=== PATIENT | female | born 1945 | race African-American/Black ===

== ENCOUNTER 2017-10-31 18:24 | Emergency (ER) | payer OTHER ==
[~2017-10-31] VITALS: Ht 167.6 cm; Wt 72.6 kg
[~2017-10-31 18:24] MED LIST: ATOR20TA50 PO; AZIT500T4 PO; CLON0.2T PO; HYDR-4298 PO; LEVO25TA6; LISI-287 PO; POTA-167 PO
[2017-11-01 00:08] VITALS: BP 187/110
[2017-11-01] MEDS ORDERED: methylPREDNISolone SOD SUCC 125 MG/2 ML VL IM ONE (02:15)
[2017-11-01] MEDS ORDERED: KETOROLAC TROMETH 60MG/2ML VIAL IM ONE (02:15)
== END 2017-11-01 03:21 | disposition home or self-care (01) ==
LOC: ER 18:24 → EDBD 18:24 → ER 11-01 03:21
DX: M79.661 Pain in right lower leg (principal); M54.31 Sciatica, right side; I10 Essential (primary) hypertension; I25.10 Atherosclerotic heart disease of native coronary artery without angina pectoris; I48.91 Unspecified atrial fibrillation; E78.5 Hyperlipidemia, unspecified; Z90.710 Acquired absence of both cervix and uterus
CPT/HCPCS: 72131; 96372; 99284; J1885; J2930

== ENCOUNTER 2018-09-03 16:59 | Emergency (ER) | payer OTHER ==
[~2018-09-03] VITALS: Ht 167.6 cm; Wt 76.7 kg
[~2018-09-03 16:59] MED LIST changes: +ASPI325T4 PO
[2018-09-03] MEDS ORDERED: ASPirin 81 mg TAB PO ONE (17:30)
[2018-09-03] MEDS ORDERED: cloNIDine HCL 0.1 MG TAB ONE (17:44)
[2018-09-03 17:47] LABS: Basophils # (auto) 0.1 uL; Basophils % (auto) 1.1 % (0.0-2.0); Eosinophils # (auto) 0.1 uL; Eosinophils % (auto) 0.8 % (0.0-7.0); Hematocrit 46.8 % (36.0-46.0); Hemoglobin 15.8 g/dL (12.2-16.2); Lymphocytes # (auto) 3.3 uL; Lymphocytes % (auto) 42.4 % (10.0-50.0); Mean Corpuscular Hemoglobin 31.1 pg (28.0-32.0); Mean Corpuscular Hgb Conc. 33.8 g/dL (32.0-36.0); Mean Corpuscular Volume 92.1 fL (80.0-100.0); Monocytes # (auto) 0.8 uL; Monocytes % (auto) 9.9 % (0.0-12.0); Neutrophils # (auto) 3.5 uL; Neutrophils % (auto) 45.8 % (37.0-80.0); Nucleated Red Blood Cells % 0.1 %; Platelet Count (auto) 234 10^3/uL (140-450); Red Blood Cells 5.08 10^6/uL (4.0-5.20); Red Cell Distribution Width 13.6 % (11.8-14.3); White Blood Cell 7.7 10^3/uL (4.4-10.8)
[2018-09-03] MEDS ORDERED: cloNIDine HCL 0.1 MG TAB PO ONE (18:00)
[2018-09-03 18:13] LABS: Albumin 4.1 g/dL (3.4-5.0); Calcium 10.4 mg/dL (8.5-10.1); Magnesium 2.2 mg/dL (1.6-2.6); Potassium 3.7 mmol/L (3.5-5.1)
[2018-09-03 18:18] LABS: BUN/Creatinine Ratio 12.8; Bilirubin, Total 0.9 mg/dL (0.2-1.0); Total Protein 8.8 g/dL (6.4-8.2)
[2018-09-03] MEDS ORDERED: LABETALOL HCL 5 MG/ML ML 20ML VIAL IV ONE (18:45)
[2018-09-03 19:15] VITALS: BP 149/99
== END 2018-09-03 19:27 | disposition home or self-care (01) ==
LOC: ER 17:00
DX: F41.9 Anxiety disorder, unspecified (principal); I10 Essential (primary) hypertension; I48.91 Unspecified atrial fibrillation; I25.10 Atherosclerotic heart disease of native coronary artery without angina pectoris; E78.5 Hyperlipidemia, unspecified; E07.9 Disorder of thyroid, unspecified; Z90.710 Acquired absence of both cervix and uterus
CPT/HCPCS: 36415; 71045; 80053; 83735; 84484; 85025; 93005; 94761; 96374

== ENCOUNTER 2019-02-20 09:09 | Emergency (ER) | payer OTHER ==
[~2019-02-20] VITALS: Ht 152.4 cm; Wt 76.7 kg
[2019-02-20 10:00] VITALS: BP 169/99
[2019-02-20] MEDS ORDERED: KETOROLAC TROMETH 60MG/2ML VIAL IM ONE (11:15)
== END 2019-02-20 12:03 | disposition home or self-care (01) ==
LOC: ER 09:11
DX: S56.911A Strain of unspecified muscles, fascia and tendons at forearm level, right arm, initial encounter (principal); I48.91 Unspecified atrial fibrillation; E78.5 Hyperlipidemia, unspecified; I10 Essential (primary) hypertension; Z86.39 Personal history of other endocrine, nutritional and metabolic disease; Z90.710 Acquired absence of both cervix and uterus; X50.0XXA Overexertion from strenuous movement or load, initial encounter; Y93.01 Activity, walking, marching and hiking; Y92.89 Other specified places as the place of occurrence of the external cause; Y99.8 Other external cause status
CPT/HCPCS: 73090; 96372; 99283; J1885

== ENCOUNTER 2019-02-20 17:44 | Emergency (ER) | payer OTHER ==
[~2019-02-20] VITALS: Ht 167.6 cm; Wt 74.8 kg
[2019-02-20 17:53] VITALS: BP 140/88
== END 2019-02-21 01:07 | disposition left against medical advice (07) ==
LOC: EDBD 17:44 → ER 17:49
DX: M79.601 Pain in right arm (principal); R07.9 Chest pain, unspecified; Z53.21 Procedure and treatment not carried out due to patient leaving prior to being seen by health care provider
CPT/HCPCS: 93005

== ENCOUNTER 2020-01-30 12:39 | Emergency (ER) | payer OTHER ==
[~2020-01-30] VITALS: Ht 167.6 cm; Wt 72.6 kg
[~2020-01-30 12:39] MED LIST changes: -AZIT500T4 PO; +AZIT500T66 PO
[2020-01-30] MEDS ORDERED: cloNIDine HCL 0.1 MG TAB PO ONE (13:00)
[2020-01-30] MEDS ORDERED: ONDANSETRON HCL 4 MG/2 ML VIAL IV ONE (13:00)
[2020-01-30 13:18] LABS: Basophils # (auto) 0.1 10 ^3/uL (0-0.2); Basophils % (auto) 0.6 % (0.0-2.0); Eosinophils # (auto) 0 10 ^3/uL (0-0.8); Eosinophils % (auto) 0.2 % (0.0-7.0); Hematocrit 45.8 % (36.0-46.0); Hemoglobin 15.2 g/dL (12.2-16.2); Lymphocytes # (auto) 2.2 10 ^3/uL (0.4-5.4); Lymphocytes % (auto) 24.2 % (10.0-50.0); Mean Corpuscular Hemoglobin 30.6 pg (28.0-32.0); Mean Corpuscular Hgb Conc. 33.3 g/dL (32.0-36.0); Mean Corpuscular Volume 91.9 fL (80.0-100.0); Monocytes # (auto) 0.4 10 ^3/uL (0-1.3); Monocytes % (auto) 4.1 % (0.0-12.0); Neutrophils # (auto) 6.4 10 ^3/uL (1.6-8.6); Neutrophils % (auto) 70.9 % (37.0-80.0); Nucleated Red Blood Cells % 0.1 %; Platelet Count (auto) 235 10^3/uL (140-450); Red Blood Cells 4.98 10^6/uL (4.0-5.20); Red Cell Distribution Width 13.7 % (11.8-14.3); White Blood Cell 9.1 10^3/uL (4.4-10.8)
[2020-01-30] MEDS ORDERED: ETOMIDATE (2MG/ML) 20ML VIAL IV ONE ×2 (13:30→13:35)
[2020-01-30] MEDS ORDERED: SUCCINYLCHOLINE CHLORIDE 20 MG/ML 10ML VIAL IV ONE ×2 (13:30→13:35)
[2020-01-30 13:35] LABS: Albumin 3.9 g/dL (3.4-5.0); Anion Gap 9 (5-15); Blood Urea Nitrogen 18 mg/dL (7-18); Calcium 10.7 mg/dL (8.5-10.1); Carbon Dioxide 28 mmol/L (21-32); Chloride 100 mmol/L (98-107); Glucose 122 mg/dL (74-106); Sodium 137 mmol/L (136-145)
[2020-01-30] MEDS ORDERED: MIDAZOLAM DRIP 50 mg/50mL 50 ML IV ONE (13:35)
[2020-01-30 13:41] LABS: Alanine Aminotransferase 29 U/L (13-56); Alkaline Phosphatase 61 U/L (45-117); Aspartate Aminotransferase 21 U/L (15-37); Bilirubin, Total 0.8 mg/dL (0.2-1.0); GFR African American 79 mL/min; GFR Non-African American 65 mL/min; Total Protein 8.6 g/dL (6.4-8.2)
[2020-01-30 13:42] LABS: Potassium 2.9 mmol/L (3.5-5.1)
[2020-01-30] MEDS ORDERED: PHENYTOIN IV DILANTIN 1,000 MG in SODIUM CHL 0.9% 250 ML IV ONE (13:45)
[2020-01-30] MEDS ORDERED: DexAMETHasone SOD PHOS 10MG/1ML VIAL INJ IV ONE (13:45)
[2020-01-30 13:58] LABS: INR 1.09 (0.9-1.15); Partial Thromboplastin Time 29.4 sec (23.64-32.05)
[2020-01-30] MEDS ORDERED: PROPOFOL 100 ML IV ONE (14:00)
[2020-01-30] MEDS ORDERED: MIDAZOLAM DRIP 50 mg/50mL 50 ML IV SCH (14:06)
[2020-01-30] MEDS ORDERED: PROPOFOL 100 ML IV SCH (14:06)
[2020-01-30] MEDS ORDERED: POTASSIUM CHL 20MEQ/100ML 100 ML IV ONE (14:15)
[2020-01-30] MEDS ORDERED: AMIODARONE HCL 150 MG in D5W 5% 100 ML IV ONE (14:15)
[2020-01-30] MEDS ORDERED: DexAMETHasone SOD PHOS 10MG/1ML VIAL INJ ONE (14:17)
[2020-01-30 14:25] VITALS: BP 110/74
[2020-01-30] MEDS ORDERED: AMIODARONE 450mg/250ml AE 250 ML IV SCH (20:13)
== END 2020-01-30 14:42 | disposition short-term general hospital (02) ==
LOC: EDBD 12:39 → ER 12:39
DX: I62.9 Nontraumatic intracranial hemorrhage, unspecified (principal); I16.9 Hypertensive crisis, unspecified; E87.6 Hypokalemia; I48.20 Chronic atrial fibrillation, unspecified; R41.0 Disorientation, unspecified; M19.90 Unspecified osteoarthritis, unspecified site; I25.10 Atherosclerotic heart disease of native coronary artery without angina pectoris; E78.5 Hyperlipidemia, unspecified; I10 Essential (primary) hypertension; E07.9 Disorder of thyroid, unspecified
CPT/HCPCS: 31500; 36415; 70450; 71045; 80053; 84484; 85025; 85610; 85730; 93005; 96365; 96375; 99291; J0282; J0330; J1100; J1165; J2250; J2405; J2704; J7050; J7060; 94002

== ENCOUNTER 2020-02-25 09:49 | Inpatient (IN) | payer OTHER ==
[~2020-02-25] VITALS: Ht 160 cm; Wt 75.3 kg
[2020-02-25 11:35] LABS: Albumin 2.8 g/dL (3.4-5.0); Calcium 9.7 mg/dL (8.5-10.1)
[2020-02-25 11:41] LABS: Bilirubin, Total 0.3 mg/dL (0.2-1.0); Total Protein 7.3 g/dL (6.4-8.2)
[2020-02-25] MEDS ORDERED: LABETALOL HCL 5 MG/ML 4ML SYRINGE IV ONE (12:00)
[2020-02-25] MEDS ORDERED: SODIUM CHLORIDE 0.9% 1,000 ML IV ONE (12:00)
[2020-02-25] MEDS ORDERED: hydrALAZINE HCL 20 MG/ML VL IV ONE (15:45)
[2020-02-25 16:03] LABS: Basophils # (auto) 0 10 ^3/uL (0-0.2); Basophils % (auto) 0.6 % (0.0-2.0); Eosinophils # (auto) 0.2 10 ^3/uL (0-0.8); Hematocrit 37.9 % (36.0-46.0); Hemoglobin 12.7 g/dL (12.2-16.2); Lymphocytes # (auto) 2.4 10 ^3/uL (0.4-5.4); Lymphocytes % (auto) 45.7 % (10.0-50.0); Mean Corpuscular Hemoglobin 31.1 pg (28.0-32.0); Mean Corpuscular Hgb Conc. 33.4 g/dL (32.0-36.0); Mean Corpuscular Volume 92.9 fL (80.0-100.0); Monocytes # (auto) 0.6 10 ^3/uL (0-1.3); Monocytes % (auto) 12.2 % (0.0-12.0); Neutrophils % (auto) 38.5 % (37.0-80.0); Nucleated Red Blood Cells % 0.2 %; Platelet Count (auto) 177 10^3/uL (140-450); Red Blood Cells 4.08 10^6/uL (4.0-5.20); Red Cell Distribution Width 14.5 % (11.8-14.3); White Blood Cell 5.2 10^3/uL (4.4-10.8)
[2020-02-25] MEDS ORDERED: NITROGLYCERIN 0.4 MG SL TAB SL PRN (17:45)
[2020-02-25] MEDS ORDERED: MORPHINE SULF INJ 2 MG/ML SYRINGE 1ML IV PRN (17:45)
[2020-02-25] MEDS ORDERED: LABETALOL HCL 5 MG/ML ML 20ML VIAL IV PRN (19:15)
[2020-02-25] MEDS ORDERED: ONDANSETRON HCL 4 MG/2 ML VIAL IV PRN (19:15)
[2020-02-25] MEDS ORDERED: LACTULOSE 20Gm/30ML SOLN PO PRN (19:15)
[2020-02-25] MEDS: cloNIDine HCL 0.1 MG TAB PO SCH (21:30)
[2020-02-25] MEDS: hydrALAZINE HCL 25 MG TAB PO SCH (21:30)
[2020-02-25] MEDS: ATORVASTATIN 20 MG TAB PO SCH (21:30)
[2020-02-25] MEDS ORDERED: LISINOPRIL 20 MG TAB PO SCH (22:00)
[2020-02-25] MEDS ORDERED: CARVEDILOL 3.125 MG TAB PO SCH (22:00)
[2020-02-26] MEDS: hydrALAZINE HCL 25 MG TAB PO SCH ×3 (06:30→22:30)
[2020-02-26] MEDS: cloNIDine HCL 0.1 MG TAB PO SCH (06:30)
[2020-02-26] MEDS: LEVOTHYROXINE SODIUM 50 MCG TAB PO SCH (06:54)
[2020-02-26 07:08] LABS: Albumin 2.6 g/dL (3.4-5.0); Calcium 9.3 mg/dL (8.5-10.1); Potassium 3.4 mmol/L (3.5-5.1)
[2020-02-26 07:12] LABS: BUN/Creatinine Ratio 10.1; Bilirubin, Total 0.3 mg/dL (0.2-1.0); Total Protein 6.3 g/dL (6.4-8.2)
[2020-02-26] MEDS ORDERED: ENOXAPARIN SOD 60 MG/0.6 ML SYRINGE SC ONE (08:30)
[2020-02-26] MEDS ORDERED: diphenhdrAMINE HCL 50 MG/1 ML VL IV ONE (08:45)
[2020-02-26] MEDS ORDERED: FAMOTIDINE (10MG/ML) 2ML VL IV ONE (08:45)
[2020-02-26] MEDS ORDERED: MAGNESIUM SULFATE 1GM/100ML 100 ML IV ONE (08:45)
[2020-02-26] MEDS ORDERED: methylPREDNISolone SOD SUCC 40 MG/ML VL IV ONE (08:45)
[2020-02-26] MEDS ORDERED: POTASSIUM CHL 20 Meq TABLET PO ONE (08:45)
[2020-02-26 09:14] LABS: INR 1.07 (0.9-1.15); Partial Thromboplastin Time 28.3 sec (23.64-32.05)
[2020-02-26 09:15] VITALS: BP 110/71
--- NOTE | 2020-02-26 09:15 | NUR ---
Admit to [facility] LU STEVENSONBenjamindmitted to [facility] via gurney on millwright, and portable 02. Patient transfered to bed, connected to unit monitoring and oxygen, and weighed by bedscale. Patient oriented to Romario paris RN, unit, room, bed, and unit policies regarding patient care and visiting hours. All questions and concerns addressed, patient verbalized understanding.
[2020-02-26 09:26] LABS: Cholesterol 221 mg/dL (< 200)
[2020-02-26 09:29] LABS: HDL Cholesterol 40 mg/dL (40-59); LDL Cholesterol 152 mg/dL (< 100); Triglycerides 110 mg/dL (< 150)
[2020-02-26] MEDS: LISINOPRIL 20 MG TAB PO SCH (09:38)
[2020-02-26] MEDS: METOPROLOL TARTRATE 25 MG TAB PO SCH ×2 (10:00→22:30)
[2020-02-26] MEDS: NITROGLYCERIN 0.2MG/HR TOPICAL PATCH TD SCH (10:00)
[2020-02-26 10:20] LABS: Free T4 (Free Thyroxine) 0.69 ng/dL (0.89-1.76)
[2020-02-26 10:21] LABS: Free T3 1.99 pg/mL (2.3-4.2)
[2020-02-26] MEDS ORDERED: LABE300T3 PO (10:38)
[2020-02-26] MEDS ORDERED: ATOR40TA52 PO (10:38)
[2020-02-26] MEDS ORDERED: FAMO-12 PO (10:38)
[2020-02-26] MEDS ORDERED: LEVO50TA7 PO (10:38)
[2020-02-26] MEDS ORDERED: DOCU100T15 PO (10:38)
[2020-02-26] MEDS ORDERED: PHE100C PO (10:38)
--- NOTE | 2020-02-26 10:41 | NUR ---
FAMILY SON UPDATED ON PATIENT STATUS. ALL QUESTIONS AND CONCERNS ADDRESSED AT THIS TIME
[2020-02-26 12:00] VITALS: BP 123/70
--- NOTE | 2020-02-26 12:31 | NUR ---
PARTIAL LINEN CHANGE PERFORMED AT THIS TIME
--- NOTE | 2020-02-26 15:08 | NUR ---
DR. WELLS PAGED AWAITING CALLBACK
[2020-02-26 15:45] VITALS: BP 124/75
--- NOTE | 2020-02-26 17:46 | NUR ---
REPORT GIVEN TO STEVEN VALDIVIA TO ASSUME CARE
--- NOTE | 2020-02-26 17:56 | NUR ---
PATIENT TRANSFERRED TO ROOM 247A VIA AERONAUTICAL DESIGN ENGINEER AND ACLS GUIDELINES. ALL BELONGINGS WITH PATIENT AT THIS TIME
--- NOTE | 2020-02-26 19:50 | NUR ---
Opening Shift Note Assumed care of patient, awake, AAOx4. No S/S of distress/SOB or pain. On room air and ambulatory. Bed in lowest locked position, side rails up x2, call light within reach. Instructed on POC and to call for assist PRN, will continue to monitor for changes Q1hr and PRN.
[2020-02-26 22:00] VITALS: BP 159/87
[2020-02-26] MEDS: ATORVASTATIN 20 MG TAB PO SCH (22:00)
[2020-02-27 05:27] VITALS: BP 167/95
[2020-02-27 06:34] LABS: Basophils # (auto) 0 10 ^3/uL (0-0.2); Basophils % (auto) 0.9 % (0.0-2.0); Eosinophils # (auto) 0.1 10 ^3/uL (0-0.8); Eosinophils % (auto) 2.3 % (0.0-7.0); Hematocrit 40.3 % (36.0-46.0); Hemoglobin 13.4 g/dL (12.2-16.2); Lymphocytes # (auto) 1.5 10 ^3/uL (0.4-5.4); Lymphocytes % (auto) 28.8 % (10.0-50.0); Mean Corpuscular Hgb Conc. 33.4 g/dL (32.0-36.0); Monocytes # (auto) 0.5 10 ^3/uL (0-1.3); Monocytes % (auto) 10.1 % (0.0-12.0); Neutrophils % (auto) 57.9 % (37.0-80.0); Nucleated Red Blood Cells % 0.1 %; Platelet Count (auto) 197 10^3/uL (140-450); Red Blood Cells 4.33 10^6/uL (4.0-5.20); Red Cell Distribution Width 14.5 % (11.8-14.3); White Blood Cell 5.2 10^3/uL (4.4-10.8)
[2020-02-27] MEDS: LEVOTHYROXINE SODIUM 50 MCG TAB PO SCH (06:36)
[2020-02-27] MEDS: hydrALAZINE HCL 25 MG TAB PO SCH ×3 (06:36→22:00)
[2020-02-27 07:12] LABS: Calcium 9.7 mg/dL (8.5-10.1); Potassium 3.3 mmol/L (3.5-5.1)
[2020-02-27 08:00] VITALS: BP 150/87
[2020-02-27] MEDS: LISINOPRIL 20 MG TAB PO SCH (08:14)
--- NOTE | 2020-02-27 09:00 | NUR ---
REFUSED BREAKFAST TRAY. SHE SAID IT WAS DISGUSTING. I CALLED AND FAXED REQUEST FOR SOMETHING ELSE FOR BREAKFAST.
[2020-02-27] MEDS: METOPROLOL TARTRATE 25 MG TAB PO SCH ×2 (09:03→21:42)
[2020-02-27] MEDS: NITROGLYCERIN 0.2MG/HR TOPICAL PATCH TD SCH (09:04)
[2020-02-27] MEDS ORDERED: POTASSIUM CHL 20 Meq TABLET PO ONE (11:00)
[2020-02-27] MEDS: ACETAMINOPHEN 500 MG TAB PO PRN (11:51)
[2020-02-27 12:00] VITALS: BP 152/90
--- NOTE | 2020-02-27 13:06 | NUR ---
REQUESTED TO HAVE NITRO PATCH REMOVED SHE SAID IT IS NOT WORKING AND SHE STILL HAS A HEADACHE. SHE REFUSED HER BREAKFAST AND LUNCH TRAY. SHE SAID THE FOOD WAS DISGUSTING. I LEFT A MESSAGE WITH DIETARY TO PLEASE CONTACT PATIENT ABOUT HER FOOD CHOICES. I OFFERED HER TRAMADOL FIR THE HEADACHE AND SHE DECLINED IT BECAUSE SHE SAID IT HAS SIDE EFFECTS. SHE ASKED TO SPEAK WITH THE CHARGE NURSE SOME ONE ABOVE ME. I INFORMED THAT I WOULD LET LARS CHARGE NURSE KNOW THAT SHE WISHES TO SPEAK TO HER.
[2020-02-27] MEDS: cloNIDine HCL 0.1 MG TAB PO SCH (16:01)
[2020-02-27 17:00] VITALS: BP 161/95
[2020-02-27] MEDS: traMADol HCL 50 MG TAB PO PRN (19:02)
--- NOTE | 2020-02-27 19:30 | NUR ---
Opening Shift Note Assumed care of patient, awake and alert. No S/S of distress/SOB. Instructed on POC and to call for assist PRN, will continue to monitor for changes Q1hr and PRN.
[2020-02-27] MEDS ORDERED: amLODIPine BESYLATE 5 MG TAB PO ONE (20:15)
[2020-02-27] MEDS ORDERED: LORazepam 2MG/ML-1ML VIAL IV PRN (21:00)
[2020-02-27 21:19] LABS: Folate (Folic Acid) 11.8 ng/mL (5.38-24)
[2020-02-27] MEDS: ATORVASTATIN 20 MG TAB PO SCH (21:41)
[2020-02-27 22:08] VITALS: BP 153/100
[2020-02-28 05:31] VITALS: BP 154/90
[2020-02-28] MEDS: hydrALAZINE HCL 25 MG TAB PO SCH ×3 (06:05→22:05)
[2020-02-28] MEDS: LEVOTHYROXINE SODIUM 50 MCG TAB PO SCH (06:06)
--- NOTE | 2020-02-28 06:09 | NUR ---
Patient reports SOB on exertion from going to the restroom. Patient states that when she returns to bed she feel SOB afterwards which resolves after a bit of time. This is new to her - per patient.
--- NOTE | 2020-02-28 07:30 | NUR ---
Opening Shift Note Received report on the patient. Awake lying in bed. Patient shows no signs of distress at this time. Discussed the plan of care with the patient. Bed in lowest position, side rails up x2, and the call light is within reach.
[2020-02-28 08:00] VITALS: BP 151/92
[2020-02-28] MEDS ORDERED: HCTZ 25 MG TAB PO ONE (09:30)
[2020-02-28] MEDS: HCTZ 25 MG TAB PO SCH (09:36)
[2020-02-28] MEDS: cloNIDine HCL 0.1 MG TAB PO SCH (09:37)
[2020-02-28] MEDS: METOPROLOL TARTRATE 25 MG TAB PO SCH ×2 (09:37→22:06)
[2020-02-28] MEDS: LISINOPRIL 20 MG TAB PO SCH (09:38)
[2020-02-28] MEDS: amLODIPine BESYLATE 5 MG TAB PO SCH (09:38)
--- NOTE | 2020-02-28 11:09 | NUR ---
Dr Spann at bedside. New orders received
[2020-02-28] MEDS ORDERED: POTASSIUM CHL 20 Meq TABLET PO ONE (11:15)
[2020-02-28 12:00] VITALS: BP 134/77
--- NOTE | 2020-02-28 12:04 | NUR ---
I faxed order for miguel to [facility]-requested a list of participating vendors and authorization.
--- NOTE | 2020-02-28 12:30 | NUR ---
PT REPORTS THAT SHE IS WALKING FINE AND DOES NOT NEED P.T.
--- NOTE | 2020-02-28 14:11 | NUR ---
I called [facility] [phone] and spoke with Olivia regarding patient's need for walker. Per Olivia she will fax me form that needs to be filled out and faxed back to them to start the authorization request. Faxed completed form to [phone]. Per Olivia they have a contract with [facility].
--- NOTE | 2020-02-28 14:15 | NUR ---
ELECTROENCEPHALOGRAM EEG COMPLETED AT BEDSIDE. PRIMARY RN TK LONGORIA.
--- NOTE | 2020-02-28 14:37 | NUR ---
assessment Patient is a 74 year old female who is alert and oriented. Prior to admission patient lived home with her son and functioned independently. Patient informed me she is able to care for her own ADLs. Per patient she will return home to her prior living arrangements post discharge and family will transport her home. Patient has no DME. Patient informed me she has had a stroke. Patient may benefit from a fww on discharge. Patient may also benefit from home health safety on discharge. I informed patient she has a right to speak to a web content & social media manager regarding all care. I informed patient she has a right to participate in any and all discharge planning. Patient does not have a POA and advanced directive. I have offered patient information on POA and advanced directives. I informed the patient the advantages and benefits of having an Advanced Directive. Patient verbalized understanding and agreed to discharge plan. Addendum: 02/28/20 at 1439 by Katie VAIL Amended: Links added.
--- NOTE | 2020-02-28 15:16 | NUR ---
Nutrition Assessment Notes please see attached link for complete assessment Est. Energy Needs ABW 65 [id number] kcal (23-25 kcal/kg BW), Est. Protein Needs: 65-71 gms/day (1.0-1.1 gms/kgABW)Will continue to monitor and reassess prn. Addendum: 02/28/20 at [address] Amended: Links added.
[2020-02-28 17:00] VITALS: BP 128/85
[2020-02-28] MEDS: ACETAMINOPHEN 500 MG TAB PO PRN (18:46)
--- NOTE | 2020-02-28 19:07 | NUR ---
Closing Shift Note Endorsed care to RN Mikal. Patient shows no signs of distress at this time.
--- NOTE | 2020-02-28 19:30 | NUR ---
Opening Shift Note Assumed care of patient, awake and alert. No S/S of distress/SOB or pain. Instructed on POC and to call for assist PRN, will continue to monitor for changes Q1hr and PRN.
[2020-02-28 22:00] VITALS: BP 159/98
[2020-02-28] MEDS: PHENYTOIN SODIUM 100 MG CAP PO SCH (22:06)
[2020-02-28] MEDS: ATORVASTATIN 20 MG TAB PO SCH (22:06)
[2020-02-29 05:00] VITALS: BP 136/88
[2020-02-29] MEDS: hydrALAZINE HCL 25 MG TAB PO SCH ×2 (06:11→14:00)
[2020-02-29] MEDS: LEVOTHYROXINE SODIUM 50 MCG TAB PO SCH (06:11)
[2020-02-29 08:41] VITALS: BP 139/85
[2020-02-29 09:49] LABS: Basophils # (auto) 0 10 ^3/uL (0-0.2); Basophils % (auto) 0.9 % (0.0-2.0); Eosinophils # (auto) 0.1 10 ^3/uL (0-0.8); Eosinophils % (auto) 2.2 % (0.0-7.0); Hematocrit 41.2 % (36.0-46.0); Hemoglobin 14.1 g/dL (12.2-16.2); Lymphocytes # (auto) 2.1 10 ^3/uL (0.4-5.4); Lymphocytes % (auto) 42.1 % (10.0-50.0); Mean Corpuscular Hemoglobin 31.5 pg (28.0-32.0); Mean Corpuscular Hgb Conc. 34.3 g/dL (32.0-36.0); Mean Corpuscular Volume 91.9 fL (80.0-100.0); Monocytes # (auto) 0.5 10 ^3/uL (0-1.3); Neutrophils # (auto) 2.2 10 ^3/uL (1.6-8.6); Neutrophils % (auto) 44.8 % (37.0-80.0); Nucleated Red Blood Cells % 0.1 %; Platelet Count (auto) 201 10^3/uL (140-450); Red Blood Cells 4.48 10^6/uL (4.0-5.20); Red Cell Distribution Width 14.9 % (11.8-14.3); White Blood Cell 4.9 10^3/uL (4.4-10.8)
[2020-02-29] MEDS: PHENYTOIN SODIUM 100 MG CAP PO SCH (09:51)
[2020-02-29 09:55] LABS: BUN/Creatinine Ratio 10.4; Calcium 9.8 mg/dL (8.5-10.1); Potassium 3.1 mmol/L (3.5-5.1)
[2020-02-29] MEDS: cloNIDine HCL 0.1 MG TAB PO SCH (10:00)
[2020-02-29] MEDS: METOPROLOL TARTRATE 25 MG TAB PO SCH (10:02)
[2020-02-29] MEDS: HCTZ 25 MG TAB PO SCH (10:02)
[2020-02-29] MEDS: amLODIPine BESYLATE 5 MG TAB PO SCH (10:03)
[2020-02-29] MEDS: LISINOPRIL 20 MG TAB PO SCH (10:03)
--- NOTE | 2020-02-29 10:50 | NUR ---
I received a call from Leatha at [facility] [phone] ext [phone] letting me know that she is working on the authorization for the walker from [facility]-she will call me back with authorization number.
--- NOTE | 2020-02-29 12:20 | NUR ---
I received a message from Leatha with [facility] letting me know that the authorization number for [facility] to provide walker is [id number].
[2020-02-29 13:00] VITALS: BP 149/101
[2020-02-29] MEDS ORDERED: LEV50T PO (13:20)
[2020-02-29] MEDS ORDERED: AML5T PO (13:20)
[2020-02-29] MEDS ORDERED: HCTZ25T PO (13:20)
[2020-02-29] MEDS ORDERED: MET25T PO (13:20)
[2020-02-29] MEDS ORDERED: LISI-646 PO (13:20)
[2020-02-29] MEDS ORDERED: CLO01T PO (13:20)
[2020-02-29] MEDS ORDERED: POTA-220 PO (13:22)
[2020-02-29] MEDS ORDERED: LEVO75TA6 PO (13:24)
[2020-02-29] MEDS ORDERED: POTASSIUM CHL 20 Meq TABLET PO ONE (13:30)
--- NOTE | 2020-02-29 14:49 | NUR ---
Patient down to MRI. No signs of distress at this time.
--- NOTE | 2020-02-29 15:17 | NUR ---
D/C Planning Per consult for walker. ANTOINE Hill obtain authorization from [facility] for walker. Faxed clinical information to [facility] [phone]. Per Crystal with [facility] clinical information has been received and they will be deliver to bed side.
[2020-02-29] MEDS: ACETAMINOPHEN 500 MG TAB PO PRN (15:29)
[2020-02-29 16:36] VITALS: BP 139/80
[2020-02-29 17:05] VITALS: BP 139/80
[2020-02-29] MEDS: traMADol HCL 50 MG TAB PO PRN (17:28)
--- NOTE | 2020-02-29 20:30 | NUR ---
Discharge instructions PREPARED BY DAY SHIFT RN. AND given as ordered. Encourage to follow up with PMD as instructed. All questions and concerns addressed. Patient verbalized understanding. Medication reconciliation form completed and copy given to patient. IV removed with catheter intact, pressure dressing applied. Telemetry unit returned to ICU. Patient taken to vehicle via wheelchair with all personal belongings, accompanied by staff . No distress noted at time of departure.
== END 2020-02-29 20:30 | disposition home or self-care (01) | DRG 64 ==
LOC: ER 09:49 → TELE 09:50 → DOU IN ICU 02-26 08:56 → TELE-EAST 02-26 17:52
PROVIDERS: ADMIT Internal Medicine; ATTEND Internal Medicine Nephrology
DX: I62.9 Nontraumatic intracranial hemorrhage, unspecified (principal); I21.4 Non-ST elevation (NSTEMI) myocardial infarction; I50.32 Chronic diastolic (congestive) heart failure; I16.0 Hypertensive urgency; E03.9 Hypothyroidism, unspecified; I48.91 Unspecified atrial fibrillation; I25.10 Atherosclerotic heart disease of native coronary artery without angina pectoris; E78.5 Hyperlipidemia, unspecified; I11.0 Hypertensive heart disease with heart failure; F17.200 Nicotine dependence, unspecified, uncomplicated; Z80.0 Family history of malignant neoplasm of digestive organs; Z82.49 Family history of ischemic heart disease and other diseases of the circulatory system; Z86.73 Personal history of transient ischemic attack (TIA), and cerebral infarction without residual deficits; Z90.710 Acquired absence of both cervix and uterus; Z98.61 Coronary angioplasty status; Z88.8 Allergy status to other drugs, medicaments and biological substances; M31.6 Other giant cell arteritis
CPT/HCPCS: 36415; 70450; 70551; 71046; 80048; 80053; 80061; 82550; 82607; 82746; 83735; 83880; 84439; 84443; 84481; 84484; 85025; 85610; 85652; 85730; 87081; 93005; 93306; 95819; G0378; J3490

== ENCOUNTER → 2020-05-10 | Emergency (ER) | payer OTHER ==
[~2020-05-10] VITALS: Ht 165.1 cm; Wt 65.8 kg
[~2020-05-10] MED LIST changes: +AML5T PO; -ASPI325T4 PO; -ATOR20TA50 PO; +ATOR40TA52 PO; -AZIT500T66 PO; +CLO01T PO; -CLON0.2T PO; +DOCU100T15 PO; +FAMO-12 PO; +HCTZ25T PO; -LISI-287 PO; +LISI-646 PO; +MET25T PO; +PHE100C PO; -POTA-167 PO; +POTA-220 PO; +SODIUM CHLORIDE 0.9% 1,000 ML IV ONE; +cloNIDine HCL 0.1 MG TAB PO ONE
[2020-05-10 15:51] LABS: Hematocrit 42.1 % (36.0-46.0); Hemoglobin 14.2 g/dL (12.2-16.2); Mean Corpuscular Hemoglobin 31.8 pg (28.0-32.0); Mean Corpuscular Hgb Conc. 33.6 g/dL (32.0-36.0); Mean Corpuscular Volume 94.5 fL (80.0-100.0); Platelet Count (auto) 213 10^3/uL (140-450); Red Blood Cells 4.45 10^6/uL (4.0-5.20); Red Cell Distribution Width 13.7 % (11.8-14.3); White Blood Cell 4.9 10^3/uL (4.4-10.8)
[2020-05-10 15:59] LABS: Band Neutrophils % (manual) 0; Basophils % (manual) 0 (0.0-2.0); Blast Cells 0; Eosinophils % (manual) 0 (0-7); Metamyelocytes % 0; Myelocytes % 0; Promyelocytes % 0; Reactive Lymphocytes 0
[2020-05-10 16:08] LABS: Albumin 3.7 g/dL (3.4-5.0); Anion Gap 3 (5-15); Blood Urea Nitrogen 7 mg/dL (7-18); Calcium 9.9 mg/dL (8.5-10.1); Carbon Dioxide 29 mmol/L (21-32); Chloride 106 mmol/L (98-107); Glucose 86 mg/dL (74-106); Potassium 3.5 mmol/L (3.5-5.1); Sodium 138 mmol/L (136-145)
[2020-05-10 16:09] LABS: Lymphocytes % (manual) 61 (10.0-50.0); Monocytes % (manual) 10 (0-12)
[2020-05-10 16:14] LABS: Alanine Aminotransferase 52 U/L (13-56); Alkaline Phosphatase 134 U/L (45-117); Aspartate Aminotransferase 34 U/L (15-37); BUN/Creatinine Ratio 7.7; Bilirubin, Total 0.3 mg/dL (0.2-1.0); GFR African American 78 mL/min; GFR Non-African American 64 mL/min; Total Protein 7.9 g/dL (6.4-8.2)
[2020-05-10 16:37] LABS: Urine Bacteria NONE SEEN /hpf (None Seen); Urine Blood Negative /uL (Negative); Urine Specific Gravity 1.007 (1.001-1.035); Urine WBC <1 /hpf (0 - 5)
[2020-05-10 19:55] VITALS: BP 132/85
== END | disposition home or self-care (01) ==
LOC: ER 14:36
DX: I10 Essential (primary) hypertension (principal); R53.1 Weakness; R42 Dizziness and giddiness; R51 Headache; Z88.8 Allergy status to other drugs, medicaments and biological substances; I48.91 Unspecified atrial fibrillation; M19.90 Unspecified osteoarthritis, unspecified site; I25.10 Atherosclerotic heart disease of native coronary artery without angina pectoris; E78.5 Hyperlipidemia, unspecified; E07.9 Disorder of thyroid, unspecified
CPT/HCPCS: 36415; 70450; 71045; 80053; 81001; 84484; 85007; 85027; 93005; 96360; 96361; 99285; J7030

== ENCOUNTER 2020-05-18 21:10 | Emergency (ER) | payer OTHER ==
[~2020-05-18] VITALS: Ht 167.6 cm; Wt 63.5 kg
[~2020-05-18 21:10] MED LIST changes: -SODIUM CHLORIDE 0.9% 1,000 ML IV ONE; -cloNIDine HCL 0.1 MG TAB PO ONE
[2020-05-18] MEDS ORDERED: cloNIDine HCL 0.1 MG TAB PO ONE (22:00)
[2020-05-18 22:16] LABS: Basophils # (auto) 0.1 10 ^3/uL (0-0.2); Eosinophils # (auto) 0.1 10 ^3/uL (0-0.8); Eosinophils % (auto) 1.2 % (0.0-7.0); Hematocrit 38.3 % (36.0-46.0); Hemoglobin 13.1 g/dL (12.2-16.2); Lymphocytes # (auto) 2.5 10 ^3/uL (0.4-5.4); Lymphocytes % (auto) 51.9 % (10.0-50.0); Mean Corpuscular Hemoglobin 31.9 pg (28.0-32.0); Mean Corpuscular Hgb Conc. 34.2 g/dL (32.0-36.0); Mean Corpuscular Volume 93.3 fL (80.0-100.0); Monocytes # (auto) 0.6 10 ^3/uL (0-1.3); Monocytes % (auto) 11.6 % (0.0-12.0); Neutrophils # (auto) 1.7 10 ^3/uL (1.6-8.6); Neutrophils % (auto) 34.3 % (37.0-80.0); Nucleated Red Blood Cells % 0.1 %; Platelet Count (auto) 206 10^3/uL (140-450); Red Cell Distribution Width 13.7 % (11.8-14.3); White Blood Cell 4.9 10^3/uL (4.4-10.8)
[2020-05-18 22:30] LABS: Albumin 3.3 g/dL (3.4-5.0); Anion Gap 3 (5-15); Blood Urea Nitrogen 7 mg/dL (7-18); Calcium 9.7 mg/dL (8.5-10.1); Carbon Dioxide 29 mmol/L (21-32); Chloride 103 mmol/L (98-107); Glucose 98 mg/dL (74-106); Potassium 3.3 mmol/L (3.5-5.1); Sodium 135 mmol/L (136-145)
[2020-05-18 22:33] LABS: Alanine Aminotransferase 50 U/L (13-56); Aspartate Aminotransferase 35 U/L (15-37); BUN/Creatinine Ratio 8.6; GFR African American 89 mL/min; GFR Non-African American 73 mL/min
[2020-05-18 22:37] LABS: Alkaline Phosphatase 109 U/L (45-117); Bilirubin, Total 0.2 mg/dL (0.2-1.0); Total Protein 7.2 g/dL (6.4-8.2)
[2020-05-18 22:44] LABS: INR 1.07 (0.9-1.15); Partial Thromboplastin Time 27.7 sec (23.0-31.2)
[2020-05-19] MEDS ORDERED: MORPHINE SULF INJ 2 MG/ML SYRINGE 1ML IM ONE (01:00)
[2020-05-19] MEDS ORDERED: ONDANSETRON HCL 4 MG/2 ML VIAL IV ONE (01:00)
[2020-05-19 01:47] LABS: Urine Bacteria NONE SEEN /hpf (None Seen); Urine Blood Negative /uL (Negative); Urine Specific Gravity 1.004 (1.001-1.035); Urine WBC 2 /hpf (0 - 5)
[2020-05-19 03:00] VITALS: BP 115/66
[2020-05-19] MEDS ORDERED: HYDROcodone-ACET 5/325MG TAB PO ONE (03:00)
== END 2020-05-19 03:00 | disposition home or self-care (01) ==
LOC: ER 21:10
DX: I10 Essential (primary) hypertension (principal); N39.0 Urinary tract infection, site not specified; E78.5 Hyperlipidemia, unspecified; Z90.710 Acquired absence of both cervix and uterus; Z79.899 Other long term (current) drug therapy; Z88.8 Allergy status to other drugs, medicaments and biological substances
CPT/HCPCS: 36415; 70450; 71045; 80053; 81001; 83880; 84484; 85025; 85610; 85730; 93005; 96372; 96374; 99285; J2270; J2405

== ENCOUNTER 2020-10-18 20:50 | Inpatient (IN) | payer OTHER ==
[~2020-10-18] VITALS: Ht 167.6 cm; Wt 73.9 kg
[~2020-10-18 20:50] MED LIST changes: -HCTZ25T PO; +HYDR25TA5 PO
[2020-10-18 21:37] LABS: Basophils # (auto) 0.1 10 ^3/uL (0-0.2); Basophils % (auto) 1.7 % (0.0-2.0); Eosinophils # (auto) 0.1 10 ^3/uL (0-0.8); Eosinophils % (auto) 1.4 % (0.0-7.0); Hematocrit 36.6 % (36.0-46.0); Hemoglobin 12.5 g/dL (12.2-16.2); Lymphocytes # (auto) 2.2 10 ^3/uL (0.4-5.4); Lymphocytes % (auto) 44.4 % (10.0-50.0); Mean Corpuscular Hemoglobin 32.1 pg (28.0-32.0); Mean Corpuscular Hgb Conc. 34.1 g/dL (32.0-36.0); Monocytes # (auto) 0.4 10 ^3/uL (0-1.3); Monocytes % (auto) 7.5 % (0.0-12.0); Neutrophils # (auto) 2.2 10 ^3/uL (1.6-8.6); Nucleated Red Blood Cells % 0.1 %; Platelet Count (auto) 213 10^3/uL (140-450); Red Blood Cells 3.89 10^6/uL (4.0-5.20); Red Cell Distribution Width 13.2 % (11.8-14.3); White Blood Cell 4.9 10^3/uL (4.4-10.8)
[2020-10-18 21:50] LABS: Albumin 3.4 g/dL (3.4-5.0); Anion Gap 4 (5-15); Blood Urea Nitrogen 16 mg/dL (7-18); Calcium 9.6 mg/dL (8.5-10.1); Carbon Dioxide 30 mmol/L (21-32); Chloride 107 mmol/L (98-107); Glucose 116 mg/dL (74-106); Magnesium 1.8 mg/dL (1.6-2.6); Potassium 3.2 mmol/L (3.5-5.1); Sodium 141 mmol/L (136-145)
[2020-10-18 21:56] LABS: INR 0.99 (0.9-1.15); Partial Thromboplastin Time 26.4 sec (23.0-31.2)
[2020-10-18 21:57] LABS: Alanine Aminotransferase 56 U/L (13-56); Alkaline Phosphatase 82 U/L (45-117); Aspartate Aminotransferase 44 U/L (15-37); BUN/Creatinine Ratio 15.7; Bilirubin, Total 0.5 mg/dL (0.2-1.0); GFR African American 68 mL/min; GFR Non-African American 56 mL/min; Total Protein 7.6 g/dL (6.4-8.2)
[2020-10-18] MEDS ORDERED: POTASSIUM CHL 20 Meq TABLET PO STA (22:46)
[2020-10-19] MEDS ORDERED: IOHEXOL 350 MG/ML 100ML IJ ONE (00:54)
[2020-10-19] MEDS ORDERED: ACETAMINOPHEN 325 MG TAB PO PRN (05:45)
[2020-10-19] MEDS ORDERED: HYDROcodone-ACET 5/325MG TAB PO PRN (05:45)
[2020-10-19] MEDS ORDERED: NITROGLYCERIN 0.4 MG SL TAB SL PRN (05:45)
[2020-10-19] MEDS ORDERED: ONDANSETRON HCL 4 MG/2 ML VIAL IV PRN (05:45)
[2020-10-19] MEDS ORDERED: hydrALAZINE HCL 20 MG/ML VL IV PRN (05:45)
[2020-10-19] MEDS ORDERED: MORPHINE SULF INJ 2 MG/ML SYRINGE 1ML IV PRN (05:45)
[2020-10-19] MEDS: SODIUM CHLOR 0.9% PF (SALINE LOCK) 10ML VIAL/SYR IV SCH ×3 (06:00→21:37)
[2020-10-19 06:47] LABS: Basophils # (auto) 0.1 10 ^3/uL (0-0.2); Basophils % (auto) 1.1 % (0.0-2.0); Eosinophils # (auto) 0.1 10 ^3/uL (0-0.8); Eosinophils % (auto) 1.4 % (0.0-7.0); Hematocrit 33.9 % (36.0-46.0); Hemoglobin 11.7 g/dL (12.2-16.2); Lymphocytes # (auto) 2.6 10 ^3/uL (0.4-5.4); Lymphocytes % (auto) 53.4 % (10.0-50.0); Mean Corpuscular Hemoglobin 32.6 pg (28.0-32.0); Mean Corpuscular Hgb Conc. 34.5 g/dL (32.0-36.0); Mean Corpuscular Volume 94.4 fL (80.0-100.0); Monocytes # (auto) 0.6 10 ^3/uL (0-1.3); Monocytes % (auto) 12.2 % (0.0-12.0); Neutrophils # (auto) 1.5 10 ^3/uL (1.6-8.6); Neutrophils % (auto) 31.9 % (37.0-80.0); Platelet Count (auto) 170 10^3/uL (140-450); Red Blood Cells 3.59 10^6/uL (4.0-5.20); Red Cell Distribution Width 13.2 % (11.8-14.3); White Blood Cell 4.8 10^3/uL (4.4-10.8)
[2020-10-19] MEDS: LEVOTHYROXINE SODIUM 88 MCG TAB PO SCH (07:00)
[2020-10-19 07:04] LABS: Calcium 9.4 mg/dL (8.5-10.1); Potassium 3.9 mmol/L (3.5-5.1)
[2020-10-19 07:09] LABS: BUN/Creatinine Ratio 17.2; Bilirubin, Total 0.6 mg/dL (0.2-1.0); Total Protein 6.6 g/dL (6.4-8.2)
[2020-10-19 07:47] LABS: Cholesterol 144 mg/dL (< 200)
[2020-10-19 07:50] LABS: HDL Cholesterol 63 mg/dL (40-59); LDL Cholesterol 78 mg/dL (< 100); Triglycerides 28 mg/dL (< 150)
[2020-10-19 09:56] VITALS: BP 146/84
[2020-10-19 10:00] VITALS: BP 146/84
[2020-10-19] MEDS: ASCORBIC ACID 500 MG TAB PO SCH ×2 (10:00→21:38)
[2020-10-19] MEDS ORDERED: LISINOPRIL 10 MG TAB PO SCH (10:00)
[2020-10-19] MEDS: amLODIPine BESYLATE 5 MG TAB PO SCH (10:45)
[2020-10-19] MEDS: MULTIPLE VITAMIN TAB PO SCH (10:45)
[2020-10-19] MEDS: FAMOTIDINE 20 MG TAB PO SCH ×2 (10:45→21:38)
[2020-10-19] MEDS: ASPirin 81 mg TAB PO SCH (10:45)
[2020-10-19] MEDS: ENOXAPARIN SOD 40 MG/0.4 ML SYRINGE SC SCH (10:46)
[2020-10-19] MEDS: DOCUSATE SOD 100 MG CAP PO PRN (10:55)
[2020-10-19 16:00] VITALS: BP 129/84
[2020-10-19] MEDS: Ensure HIGH Protein Chocolate 8oz Bottle PO SCH (18:11)
[2020-10-19] MEDS: METOPROLOL TARTRATE 25 MG TAB PO SCH (21:37)
[2020-10-19 22:00] VITALS: BP 138/84
[2020-10-19] MEDS ORDERED: ATORVASTATIN 20 MG TAB PO SCH (22:00)
[2020-10-19] MEDS ORDERED: PHENYTOIN SODIUM 100 MG CAP PO SCH (22:00)
[2020-10-19 22:09] LABS: Urine Bacteria MOD /hpf (None Seen); Urine Blood Negative /uL (Negative); Urine Hyaline Cast FEW /lpf (0 - 2); Urine WBC 4 /hpf (0 - 5)
[2020-10-20 05:00] VITALS: BP 154/95
[2020-10-20] MEDS: LEVOTHYROXINE SODIUM 88 MCG TAB PO SCH (06:09)
[2020-10-20] MEDS: SODIUM CHLOR 0.9% PF (SALINE LOCK) 10ML VIAL/SYR IV SCH ×2 (06:09→15:11)
[2020-10-20] MEDS: DOCUSATE SOD 100 MG CAP PO PRN (06:10)
[2020-10-20 07:09] LABS: Hematocrit 33.9 % (36.0-46.0); Hemoglobin 11.7 g/dL (12.2-16.2); Mean Corpuscular Hemoglobin 32.2 pg (28.0-32.0); Mean Corpuscular Hgb Conc. 34.4 g/dL (32.0-36.0); Mean Corpuscular Volume 93.5 fL (80.0-100.0); Platelet Count (auto) 171 10^3/uL (140-450); Red Blood Cells 3.62 10^6/uL (4.0-5.20); Red Cell Distribution Width 12.9 % (11.8-14.3)
[2020-10-20 07:13] LABS: Band Neutrophils % (manual) 0; Basophils % (manual) 0 (0.0-2.0); Blast Cells 0; Metamyelocytes % 0; Myelocytes % 0; Promyelocytes % 0; Reactive Lymphocytes 0
[2020-10-20 07:21] LABS: Albumin 2.9 g/dL (3.4-5.0); Potassium 3.3 mmol/L (3.5-5.1)
[2020-10-20 07:24] LABS: BUN/Creatinine Ratio 19.1; Bilirubin, Total 0.8 mg/dL (0.2-1.0); Total Protein 6.5 g/dL (6.4-8.2)
[2020-10-20 07:51] VITALS: BP 146/78
[2020-10-20 08:54] LABS: Eosinophils % (manual) 3 (0-7); Lymphocytes % (manual) 65 (10.0-50.0); Monocytes % (manual) 5 (0-12)
[2020-10-20] MEDS ORDERED: HCTZ 25 MG TAB PO SCH (10:00)
[2020-10-20] MEDS ORDERED: POTASSIUM CHL 20 Meq TABLET PO SCH (10:00)
[2020-10-20] MEDS ORDERED: LISINOPRIL 20 MG TAB PO SCH (10:00)
[2020-10-20] MEDS: Ensure HIGH Protein Chocolate 8oz Bottle PO SCH ×2 (10:03→12:50)
[2020-10-20] MEDS: ASPirin 81 mg TAB PO SCH (10:03)
[2020-10-20] MEDS: amLODIPine BESYLATE 5 MG TAB PO SCH (10:04)
[2020-10-20] MEDS: METOPROLOL TARTRATE 25 MG TAB PO SCH (10:04)
[2020-10-20] MEDS: MULTIPLE VITAMIN TAB PO SCH (10:04)
[2020-10-20] MEDS: ASCORBIC ACID 500 MG TAB PO SCH (10:05)
[2020-10-20] MEDS: ENOXAPARIN SOD 40 MG/0.4 ML SYRINGE SC SCH (10:05)
[2020-10-20] MEDS: FAMOTIDINE 20 MG TAB PO SCH (10:05)
[2020-10-20] MEDS ORDERED: POTASSIUM EFFERVESENT TAB 25 MEQ PO ONE (12:00)
[2020-10-20 12:34] VITALS: BP 132/72
== END 2020-10-20 15:05 | disposition home or self-care (01) | DRG 281 ==
LOC: ER 20:50 → EDUNIT# 20:50 → EDBD 20:50 → TELE 20:51 → TELE-EAST 10-19 08:05
PROVIDERS: ADMIT Nurse Practitioner Family; ATTEND Nurse Practitioner Family
DX: I48.91 Unspecified atrial fibrillation (principal); I21.A1 Myocardial infarction type 2; D68.59 Other primary thrombophilia; E44.0 Moderate protein-calorie malnutrition; I48.92 Unspecified atrial flutter; E78.5 Hyperlipidemia, unspecified; E87.6 Hypokalemia; E88.09 Other disorders of plasma-protein metabolism, not elsewhere classified; Z20.822 Contact with and (suspected) exposure to COVID-19; D64.9 Anemia, unspecified; I10 Essential (primary) hypertension; I25.10 Atherosclerotic heart disease of native coronary artery without angina pectoris; M19.90 Unspecified osteoarthritis, unspecified site; R00.1 Bradycardia, unspecified; E03.9 Hypothyroidism, unspecified; Z82.49 Family history of ischemic heart disease and other diseases of the circulatory system; Z68.24 Body mass index [BMI] 24.0-24.9, adult; Z88.8 Allergy status to other drugs, medicaments and biological substances; Z85.038 Personal history of other malignant neoplasm of large intestine; Z90.710 Acquired absence of both cervix and uterus; Z86.73 Personal history of transient ischemic attack (TIA), and cerebral infarction without residual deficits
CPT/HCPCS: 36415; 71045; 80053; 80061; 81001; 83735; 83880; 84443; 84484; 85007; 85025; 85027; 85379; 85610; 85730; 93005; G0378

== ENCOUNTER 2021-01-25 10:44 | Emergency (ER) | payer MEDICARE, BC, MEDICAID ==
[~2021-01-25] VITALS: Ht 167.6 cm; Wt 64.4 kg
[~2021-01-25 10:44] MED LIST changes: -LEVO25TA6; -LISI-646 PO; +LISI20TA28 PO; -PHE100C PO
[2021-01-25 11:16] LABS: Hematocrit 42.9 % (36.0-46.0); Hemoglobin 14.7 g/dL (12.2-16.2); Mean Corpuscular Hemoglobin 29.9 pg (28.0-32.0); Mean Corpuscular Hgb Conc. 34.1 g/dL (32.0-36.0); Mean Corpuscular Volume 87.7 fL (80.0-100.0); Platelet Count (auto) 215 10^3/uL (140-450); Red Blood Cells 4.89 10^6/uL (4.0-5.20); Red Cell Distribution Width 14.9 % (11.8-14.3); White Blood Cell 4.7 10^3/uL (4.4-10.8)
[2021-01-25 11:21] LABS: Basophils % (manual) 0 (0.0-2.0); Blast Cells 0; Metamyelocytes % 0; Myelocytes % 0; Promyelocytes % 0; Reactive Lymphocytes 0
[2021-01-25 11:28] LABS: Alanine Aminotransferase 29 U/L (13-56); Albumin 3.8 g/dL (3.4-5.0); Anion Gap 5 (5-15); Blood Urea Nitrogen 14 mg/dL (7-18); Calcium 10.3 mg/dL (8.5-10.1); Carbon Dioxide 30 mmol/L (21-32); Chloride 106 mmol/L (98-107); Glucose 73 mg/dL (74-106); Magnesium 1.9 mg/dL (1.6-2.6); Potassium 3.5 mmol/L (3.5-5.1); Sodium 141 mmol/L (136-145)
[2021-01-25 11:34] LABS: Alkaline Phosphatase 69 U/L (45-117); Aspartate Aminotransferase 23 U/L (15-37); BUN/Creatinine Ratio 16.1; Bilirubin, Total 0.7 mg/dL (0.2-1.0); GFR African American 82 mL/min; GFR Non-African American 68 mL/min; Total Protein 8.1 g/dL (6.4-8.2)
[2021-01-25 11:52] LABS: Band Neutrophils % (manual) 1; Eosinophils % (manual) 2 (0-7); Lymphocytes % (manual) 62 (10.0-50.0); Monocytes % (manual) 12 (0-12)
[2021-01-25] MEDS ORDERED: HYDROcodone-ACET 5/325MG TAB PO ONE (13:30)
[2021-01-25 14:00] VITALS: BP 151/89
[2021-01-25 14:17] LABS: Urine Bacteria FEW /hpf (None Seen); Urine Blood Negative /uL (Negative); Urine Specific Gravity 1.004 (1.001-1.035); Urine WBC 2 /hpf (0 - 5)
== END 2021-01-25 15:46 | disposition home or self-care (01) ==
LOC: ER 10:44
DX: N39.0 Urinary tract infection, site not specified (principal); R07.89 Other chest pain; I25.10 Atherosclerotic heart disease of native coronary artery without angina pectoris; E78.00 Pure hypercholesterolemia, unspecified; I10 Essential (primary) hypertension; I48.91 Unspecified atrial fibrillation; I25.2 Old myocardial infarction; E78.5 Hyperlipidemia, unspecified; Z88.8 Allergy status to other drugs, medicaments and biological substances; Z91.018 Allergy to other foods; Z79.899 Other long term (current) drug therapy; Z95.5 Presence of coronary angioplasty implant and graft; Z86.73 Personal history of transient ischemic attack (TIA), and cerebral infarction without residual deficits; Z98.890 Other specified postprocedural states; Z90.710 Acquired absence of both cervix and uterus
CPT/HCPCS: 36415; 71045; 80053; 81001; 83735; 84484; 85007; 85027; 93005

== ENCOUNTER 2021-02-05 21:47 | Emergency (ER) | payer MEDICARE, BC, MEDICAID ==
[~2021-02-05] VITALS: Ht 167.6 cm; Wt 65.8 kg
[2021-02-05 22:36] LABS: Basophils # (auto) 0 10 ^3/uL (0-0.2); Basophils % (auto) 0.8 % (0.0-2.0); Eosinophils # (auto) 0 10 ^3/uL (0-0.8); Eosinophils % (auto) 0.8 % (0.0-7.0); Hematocrit 40.6 % (36.0-46.0); Hemoglobin 13.9 g/dL (12.2-16.2); Lymphocytes % (auto) 53.2 % (10.0-50.0); Mean Corpuscular Hemoglobin 30.3 pg (28.0-32.0); Mean Corpuscular Hgb Conc. 34.3 g/dL (32.0-36.0); Mean Corpuscular Volume 88.3 fL (80.0-100.0); Monocytes # (auto) 0.6 10 ^3/uL (0-1.3); Monocytes % (auto) 10.7 % (0.0-12.0); Neutrophils # (auto) 1.9 10 ^3/uL (1.6-8.6); Neutrophils % (auto) 34.5 % (37.0-80.0); Nucleated Red Blood Cells % 0.1 %; Platelet Count (auto) 200 10^3/uL (140-450); Red Cell Distribution Width 15.6 % (11.8-14.3); White Blood Cell 5.6 10^3/uL (4.4-10.8)
[2021-02-05 22:53] LABS: Albumin 3.9 g/dL (3.4-5.0); Calcium 10.3 mg/dL (8.5-10.1); Chloride 105 mmol/L (98-107); Potassium 3.4 mmol/L (3.5-5.1); Sodium 138 mmol/L (136-145)
[2021-02-05 22:56] LABS: Alanine Aminotransferase 30 U/L (13-56); Anion Gap 5 (5-15); Aspartate Aminotransferase 27 U/L (15-37); BUN/Creatinine Ratio 16.3; Blood Urea Nitrogen 17 mg/dL (7-18); Carbon Dioxide 28 mmol/L (21-32); GFR African American 67 mL/min; GFR Non-African American 55 mL/min; Glucose 97 mg/dL (74-106)
[2021-02-05 23:00] LABS: Alkaline Phosphatase 63 U/L (45-117); Bilirubin, Total 0.6 mg/dL (0.2-1.0)
[2021-02-06 03:12] VITALS: BP 151/88
== END 2021-02-06 03:12 | disposition home or self-care (01) ==
LOC: ER 21:54
DX: M79.10 Myalgia, unspecified site (principal); E78.5 Hyperlipidemia, unspecified; I10 Essential (primary) hypertension; Z90.710 Acquired absence of both cervix and uterus; Z86.73 Personal history of transient ischemic attack (TIA), and cerebral infarction without residual deficits; Z88.6 Allergy status to analgesic agent
CPT/HCPCS: 36415; 80053; 84484; 85025; 93005

== ENCOUNTER → 2021-02-28 | Outpatient (CLI) | payer MEDICARE, BC, MEDICAID | END | disposition home or self-care (01) | LOC: Rad HDHVI 13:02 | PROVIDERS: ATTEND Internal Medicine Cardiovascular Disease | DX: R00.2 Palpitations (principal); I10 Essential (primary) hypertension | CPT/HCPCS: 93306 ==

== ENCOUNTER 2021-04-11 14:17 | Inpatient (IN) | payer MEDICARE, BC, OTHER ==
[~2021-04-11] VITALS: Ht 165.1 cm; Wt 79.0 kg
[2021-04-11] MEDS ORDERED: dilTIAZem 25 MG/5 ML VIAL IV ONE (14:30)
[2021-04-11 15:54] LABS: Basophils # (auto) 0.1 10 ^3/uL (0-0.2); Basophils % (auto) 0.9 % (0.0-2.0); Eosinophils # (auto) 0.1 10 ^3/uL (0-0.8); Eosinophils % (auto) 1.3 % (0.0-7.0); Hemoglobin 14.2 g/dL (12.2-16.2); Lymphocytes # (auto) 2.9 10 ^3/uL (0.4-5.4); Lymphocytes % (auto) 51.5 % (10.0-50.0); Mean Corpuscular Hemoglobin 31.4 pg (28.0-32.0); Mean Corpuscular Hgb Conc. 34.6 g/dL (32.0-36.0); Mean Corpuscular Volume 90.7 fL (80.0-100.0); Monocytes # (auto) 0.5 10 ^3/uL (0-1.3); Monocytes % (auto) 8.2 % (0.0-12.0); Neutrophils # (auto) 2.2 10 ^3/uL (1.6-8.6); Neutrophils % (auto) 38.1 % (37.0-80.0); Nucleated Red Blood Cells % 0.2 %; Red Blood Cells 4.52 10^6/uL (4.0-5.20); Red Cell Distribution Width 15.5 % (11.8-14.3); White Blood Cell 5.7 10^3/uL (4.4-10.8)
[2021-04-11 15:55] LABS: Albumin 3.2 g/dL (3.4-5.0); Anion Gap 7 (5-15); Blood Urea Nitrogen 27 mg/dL (7-18); Calcium 9.8 mg/dL (8.5-10.1); Carbon Dioxide 23 mmol/L (21-32); Chloride 112 mmol/L (98-107); Glucose 145 mg/dL (74-106); Magnesium 1.9 mg/dL (1.6-2.6); Potassium 3.3 mmol/L (3.5-5.1); Sodium 142 mmol/L (136-145)
[2021-04-11 16:03] LABS: Alanine Aminotransferase 20 U/L (13-56); Alkaline Phosphatase 55 U/L (45-117); Aspartate Aminotransferase 17 U/L (15-37); BUN/Creatinine Ratio 21.3; Bilirubin, Total 0.6 mg/dL (0.2-1.0); GFR African American 53 mL/min; GFR Non-African American 44 mL/min; Total Protein 7.2 g/dL (6.4-8.2)
[2021-04-11] MEDS ORDERED: NITROGLYCERIN 0.4 MG SL TAB SL PRN (16:15)
[2021-04-11] MEDS ORDERED: HYDROcodone-ACET 5/325MG TAB PO PRN (16:15)
[2021-04-11] MEDS ORDERED: ACETAMINOPHEN 325 MG TAB PO PRN (16:15)
[2021-04-11] MEDS ORDERED: MORPHINE SULF INJ 2 MG/ML SYRINGE 1ML IV PRN ×2 (16:15)
[2021-04-11] MEDS ORDERED: POTASSIUM CHL 20 Meq TABLET PO ONE (16:30)
[2021-04-11] MEDS ORDERED: SODIUM CHLORIDE 0.9% 1,000 ML IV ONE (16:30)
[2021-04-11] MEDS ORDERED: AMIODARONE 450mg/250ml AE 250 ML IV SCH ×2 (17:00→23:00)
[2021-04-11 18:46] LABS: Urine Bacteria NONE SEEN /hpf (None Seen); Urine Blood Negative /uL (Negative); Urine WBC 9 /hpf (0 - 5)
[2021-04-11] MEDS: METOPROLOL TARTRATE 25 MG TAB PO SCH (21:17)
[2021-04-11] MEDS: SACUBITRIL-VALSARTAN 24mg/26mg TAB PO SCH (21:17)
[2021-04-11 21:33] VITALS: BP 99/67
[2021-04-11] MEDS ORDERED: RIVA10TA PO (21:49)
[2021-04-11] MEDS ORDERED: AMLO-489 PO (21:49)
[2021-04-11] MEDS ORDERED: POTA-220 PO (21:49)
[2021-04-11] MEDS ORDERED: METO25TA93 PO (21:49)
[2021-04-11] MEDS ORDERED: SACU1TAB7 PO (21:49)
[2021-04-11] MEDS ORDERED: HYDR25TA4 PO (21:49)
[2021-04-11 22:00] VITALS: BP 99/67
[2021-04-11] MEDS: RIVAROXABAN 10 MG TAB PO SCH (22:00)
[2021-04-12] VITALS (7 sets, daily range): BP systolic 97–129; BP diastolic 64–87
[2021-04-12 05:44] LABS: Hematocrit 37.8 % (36.0-46.0); Hemoglobin 13.1 g/dL (12.2-16.2); Mean Corpuscular Hemoglobin 31.4 pg (28.0-32.0); Mean Corpuscular Hgb Conc. 34.7 g/dL (32.0-36.0); Mean Corpuscular Volume 90.6 fL (80.0-100.0); Red Blood Cells 4.17 10^6/uL (4.0-5.20); White Blood Cell 5.2 10^3/uL (4.4-10.8)
[2021-04-12 05:52] LABS: Potassium 3.1 mmol/L (3.5-5.1)
[2021-04-12 05:56] LABS: Band Neutrophils % (manual) 0; Basophils % (manual) 0 (0.0-2.0); Blast Cells 0; Metamyelocytes % 0; Myelocytes % 0; Promyelocytes % 0
[2021-04-12 06:01] LABS: Albumin 2.7 g/dL (3.4-5.0); BUN/Creatinine Ratio 21.7; Bilirubin, Total 0.7 mg/dL (0.2-1.0); Calcium 9.3 mg/dL (8.5-10.1); Total Protein 6.1 g/dL (6.4-8.2)
[2021-04-12 08:42] LABS: Eosinophils % (manual) 1 (0-7); Lymphocytes % (manual) 47 (10.0-50.0); Monocytes % (manual) 11 (0-12); Reactive Lymphocytes 4
[2021-04-12] MEDS: POTASSIUM CHL 20MEQ/100ML 100 ML IV SCH ×2 (09:39→10:30)
[2021-04-12] MEDS: SACUBITRIL-VALSARTAN 24mg/26mg TAB PO SCH ×2 (09:42→22:07)
[2021-04-12] MEDS: RIVAROXABAN 10 MG TAB PO SCH ×2 (09:57→22:09)
[2021-04-12] MEDS: METOPROLOL TARTRATE 25 MG TAB PO SCH ×2 (10:00→22:08)
[2021-04-12] MEDS ORDERED: ENOXAPARIN SOD 40 MG/0.4 ML SYRINGE SC SCH (10:00)
[2021-04-12] MEDS: amLODIPine BESYLATE 5 MG TAB PO SCH (10:00)
[2021-04-12] MEDS: AMIODARONE HCL 200 MG TAB PO SCH ×2 (14:00→22:07)
[2021-04-12] MEDS: POTASSIUM CHL 20 Meq TABLET PO SCH (22:08)
[2021-04-13 05:00] VITALS: BP 129/80
[2021-04-13] MEDS: AMIODARONE HCL 200 MG TAB PO SCH ×3 (06:01→22:39)
[2021-04-13 06:16] LABS: Albumin 2.7 g/dL (3.4-5.0); Calcium 9.2 mg/dL (8.5-10.1); Magnesium 1.6 mg/dL (1.6-2.6); Potassium 3.6 mmol/L (3.5-5.1)
[2021-04-13 06:19] LABS: BUN/Creatinine Ratio 18.8
[2021-04-13 06:22] LABS: Bilirubin, Total 0.8 mg/dL (0.2-1.0); Phosphorus 2.6 mg/dL (2.5-4.90); Total Protein 5.9 g/dL (6.4-8.2)
[2021-04-13 09:00] VITALS: BP 145/92
[2021-04-13] MEDS: POTASSIUM CHL 20 Meq TABLET PO SCH ×2 (09:48→22:39)
[2021-04-13] MEDS: SACUBITRIL-VALSARTAN 24mg/26mg TAB PO SCH ×2 (09:48→22:00)
[2021-04-13] MEDS: RIVAROXABAN 10 MG TAB PO SCH ×2 (09:58→22:39)
[2021-04-13] MEDS: amLODIPine BESYLATE 5 MG TAB PO SCH (10:11)
[2021-04-13] MEDS: METOPROLOL TARTRATE 25 MG TAB PO SCH ×2 (10:11→22:39)
[2021-04-13 17:00] VITALS: BP 109/78
[2021-04-13 20:00] VITALS: BP 109/76
[2021-04-13 22:00] VITALS: BP 109/76
[2021-04-14 05:00] VITALS: BP 107/77
[2021-04-14] MEDS: AMIODARONE HCL 200 MG TAB PO SCH ×3 (06:05→22:27)
[2021-04-14 06:25] LABS: BUN/Creatinine Ratio 16.7; Calcium 9.2 mg/dL (8.5-10.1)
[2021-04-14] MEDS ORDERED: LOPERAMIDE HCL 2 MG CAP PO PRN (06:45)
[2021-04-14 06:59] LABS: Potassium 3.6 mmol/L (3.5-5.1)
[2021-04-14 09:00] VITALS: BP 116/68
[2021-04-14] MEDS: METOPROLOL TARTRATE 25 MG TAB PO SCH ×2 (09:57→22:31)
[2021-04-14] MEDS: amLODIPine BESYLATE 5 MG TAB PO SCH (09:59)
[2021-04-14] MEDS: RIVAROXABAN 10 MG TAB PO SCH ×2 (09:59→22:28)
[2021-04-14] MEDS: SACUBITRIL-VALSARTAN 24mg/26mg TAB PO SCH ×2 (10:00→22:26)
[2021-04-14] MEDS: POTASSIUM CHL 20 Meq TABLET PO SCH ×2 (10:00→22:27)
[2021-04-14 13:00] VITALS: BP 114/75
[2021-04-14] MEDS ORDERED: traZODone HCL 50 MG TAB PO PRN (13:00)
[2021-04-14 17:00] VITALS: BP 104/81
[2021-04-14 20:00] VITALS: BP 114/75
[2021-04-14 22:00] VITALS: BP 118/92
[2021-04-15] VITALS (8 sets, daily range): BP systolic 92–118; BP diastolic 50–83
[2021-04-15] MEDS: AMIODARONE HCL 200 MG TAB PO SCH ×2 (07:00→15:00)
[2021-04-15] MEDS: POTASSIUM CHL 20 Meq TABLET PO SCH ×2 (10:41→22:00)
[2021-04-15] MEDS: METOPROLOL TARTRATE 25 MG TAB PO SCH (10:42)
[2021-04-15] MEDS: SACUBITRIL-VALSARTAN 24mg/26mg TAB PO SCH ×2 (10:43→22:00)
[2021-04-15] MEDS: RIVAROXABAN 10 MG TAB PO SCH ×2 (10:44→22:00)
[2021-04-15] MEDS: amLODIPine BESYLATE 5 MG TAB PO SCH (10:45)
[2021-04-15] MEDS ORDERED: fentaNYL CITRATE 100 MCG/2 ML VL IV ONE (12:45)
[2021-04-15] MEDS ORDERED: MIDAZOLAM HCL 2MG/2ML 2ml VIAL (1mg/ml) IV ONE ×4 (12:45→13:00)
[2021-04-15] MEDS ORDERED: diphenhdrAMINE HCL 50 MG/1 ML VL IV ONE (13:00)
[2021-04-15] MEDS ORDERED: FLUMAZENIL 0.1 MG/ML INJ 10ML MDV IV ONE (13:08)
[2021-04-16 05:00] VITALS: BP 108/62
[2021-04-16 05:19] LABS: Hematocrit 37.5 % (36.0-46.0); Mean Corpuscular Hemoglobin 31.6 pg (28.0-32.0); Mean Corpuscular Hgb Conc. 34.8 g/dL (32.0-36.0); Mean Corpuscular Volume 90.9 fL (80.0-100.0); Red Blood Cells 4.13 10^6/uL (4.0-5.20); Red Cell Distribution Width 15.2 % (11.8-14.3)
[2021-04-16 05:43] LABS: Albumin 2.5 g/dL (3.4-5.0); Calcium 8.9 mg/dL (8.5-10.1); Magnesium 1.7 mg/dL (1.6-2.6)
[2021-04-16 05:46] LABS: BUN/Creatinine Ratio 19.6; Bilirubin, Total 0.6 mg/dL (0.2-1.0); Total Protein 5.7 g/dL (6.4-8.2)
[2021-04-16 06:00] LABS: Band Neutrophils % (manual) 0; Basophils % (manual) 0 (0.0-2.0); Blast Cells 0; Metamyelocytes % 0; Myelocytes % 0; Promyelocytes % 0; Reactive Lymphocytes 0
[2021-04-16 07:38] LABS: Eosinophils % (manual) 4 (0-7); Lymphocytes % (manual) 45 (10.0-50.0); Monocytes % (manual) 4 (0-12)
[2021-04-16 09:00] VITALS: BP 111/70
[2021-04-16] MEDS: POTASSIUM CHL 20 Meq TABLET PO SCH (09:33)
[2021-04-16] MEDS: SACUBITRIL-VALSARTAN 24mg/26mg TAB PO SCH (09:34)
[2021-04-16] MEDS: amLODIPine BESYLATE 5 MG TAB PO SCH (09:34)
[2021-04-16] MEDS: RIVAROXABAN 10 MG TAB PO SCH (09:35)
[2021-04-16] MEDS: AMIODARONE HCL 200 MG TAB PO SCH (09:38)
[2021-04-16 13:07] VITALS: BP 122/74
[2021-04-16 17:38] VITALS: BP 114/71
== END 2021-04-16 19:03 | disposition home or self-care (01) | DRG 309 ==
LOC: ER 14:17 → TELE 16:13 → TELE-WESTW 20:04
PROVIDERS: ADMIT Nurse Practitioner; ATTEND Nurse Practitioner
PROC: 5A2204Z Restoration of Cardiac Rhythm, Single (ICD-10-PCS; principal; 2021-04-15)
DX: I48.91 Unspecified atrial fibrillation (principal); N17.9 Acute kidney failure, unspecified; D68.59 Other primary thrombophilia; E87.6 Hypokalemia; I10 Essential (primary) hypertension; E89.0 Postprocedural hypothyroidism; Z20.822 Contact with and (suspected) exposure to COVID-19; I25.10 Atherosclerotic heart disease of native coronary artery without angina pectoris; F41.9 Anxiety disorder, unspecified; Z82.49 Family history of ischemic heart disease and other diseases of the circulatory system; Z85.038 Personal history of other malignant neoplasm of large intestine; Z86.73 Personal history of transient ischemic attack (TIA), and cerebral infarction without residual deficits; Z90.710 Acquired absence of both cervix and uterus; Z88.8 Allergy status to other drugs, medicaments and biological substances
CPT/HCPCS: 36415; 71045; 80048; 80053; 80061; 81001; 83735; 83880; 84100; 84132; 84484; 85007; 85025; 85027; 85379; 87426; 93005; 96361; 96365; 96366; 96375; 99152; 99291; G0378; J2250; J3480

== ENCOUNTER → 2022-01-02 | Outpatient (CLI) | payer MEDICARE, BC, OTHER ==
[~2022-01-02] MED LIST changes: +AMLO-489 PO; -ATOR40TA52 PO; -DOCU100T15 PO; -FAMO-12 PO; +HYDR25TA4 PO; +METO25TA93 PO; +RIVA10TA PO; +SACU1TAB7 PO
[2022-01-02 15:46] LABS: Potassium 3.3 mmol/L (3.5-5.1)
[2022-01-02 15:52] LABS: BUN/Creatinine Ratio 19.4; Calcium 10.7 mg/dL (8.5-10.1)
== END | disposition home or self-care (01) ==
LOC: LAB 12:57
PROVIDERS: ATTEND Internal Medicine Cardiovascular Disease
DX: I10 Essential (primary) hypertension (principal); E21.4 Other specified disorders of parathyroid gland
CPT/HCPCS: 36415; 80048; 82330; 83970

== ENCOUNTER → 2022-01-07 | Outpatient (CLI) | payer MEDICARE, BC, OTHER | END | disposition home or self-care (01) | LOC: LAB 14:06 | PROVIDERS: ATTEND Internal Medicine Cardiovascular Disease | DX: E83.50 Unspecified disorder of calcium metabolism (principal) | CPT/HCPCS: 82330 ==

== ENCOUNTER 2022-04-24 13:43 | Emergency (ER) | payer MEDICARE, BC, OTHER ==
[~2022-04-24] VITALS: Ht 160 cm; Wt 66.0 kg
[2022-04-24] MEDS ORDERED: ACETAMINOPHEN 500 MG TAB PO ONE (16:00)
[2022-04-24 16:35] VITALS: BP 138/86
[2022-04-24] MEDS ORDERED: ACET-1080 PO (16:41)
[2022-04-24] MEDS ORDERED: PRED20TA2 PO (16:41)
== END 2022-04-24 17:00 | disposition home or self-care (01) ==
LOC: ER 13:43
DX: M51.17 Intervertebral disc disorders with radiculopathy, lumbosacral region (principal); E78.5 Hyperlipidemia, unspecified; I10 Essential (primary) hypertension; Z87.820 Personal history of traumatic brain injury; Z90.710 Acquired absence of both cervix and uterus; X50.1XXA Overexertion from prolonged static or awkward postures, initial encounter; Y93.89 Activity, other specified; Y92.89 Other specified places as the place of occurrence of the external cause; Y99.8 Other external cause status
CPT/HCPCS: 72100

== ENCOUNTER 2022-07-06 14:50 | Emergency (ER) | payer MEDICARE, BC ==
[~2022-07-06] VITALS: Ht 162.6 cm; Wt 68.4 kg
[~2022-07-06 14:50] MED LIST changes: +ACET-1080 PO; +PRED20TA2 PO
[2022-07-06] MEDS ORDERED: ASPirin-EC 325mg tab PO ONE (15:15)
[2022-07-06 15:57] LABS: Albumin 4.3 g/dL (3.4-5.0); Calcium 9.9 mg/dL (8.5-10.1); Potassium 3.2 mmol/L (3.5-5.1)
[2022-07-06 15:59] LABS: BUN/Creatinine Ratio 15.2
[2022-07-06 16:08] LABS: INR 1.1 (0.9-1.15)
[2022-07-06 16:09] LABS: Partial Thromboplastin Time 31.4 sec (24.6-33.4)
[2022-07-06 16:16] LABS: Bilirubin, Total 0.8 mg/dL (0.2-1.0); Total Protein 8.2 g/dL (6.4-8.2)
[2022-07-06 17:06] LABS: Basophils # (auto) 0 10 ^3/uL (0-0.2); Eosinophils # (auto) 0.1 10 ^3/uL (0-0.8); Eosinophils % (auto) 1.3 % (0.0-7.0); Hematocrit 44.2 % (36.0-46.0); Hemoglobin 14.7 g/dL (12.2-16.2); Lymphocytes # (auto) 1.9 10 ^3/uL (0.4-5.4); Lymphocytes % (auto) 47.7 % (10.0-50.0); Mean Corpuscular Hgb Conc. 33.2 g/dL (32.0-36.0); Mean Corpuscular Volume 93.5 fL (80.0-100.0); Monocytes # (auto) 0.4 10 ^3/uL (0-1.3); Monocytes % (auto) 10.4 % (0.0-12.0); Neutrophils # (auto) 1.6 10 ^3/uL (1.6-8.6); Neutrophils % (auto) 39.6 % (37.0-80.0); Nucleated Red Blood Cells % 0.4 %; Red Blood Cells 4.72 10^6/uL (4.0-5.20); Red Cell Distribution Width 13.4 % (11.8-14.3); White Blood Cell 3.9 10^3/uL (4.4-10.8)
[2022-07-06 18:10] VITALS: BP 140/88
== END 2022-07-06 17:31 | disposition home or self-care (01) ==
LOC: ER 14:50
DX: R07.89 Other chest pain (principal); I48.91 Unspecified atrial fibrillation; I10 Essential (primary) hypertension; I25.10 Atherosclerotic heart disease of native coronary artery without angina pectoris; E03.9 Hypothyroidism, unspecified; E78.5 Hyperlipidemia, unspecified; Z86.73 Personal history of transient ischemic attack (TIA), and cerebral infarction without residual deficits; Z90.710 Acquired absence of both cervix and uterus; Z90.89 Acquired absence of other organs; Z79.899 Other long term (current) drug therapy; Z91.041 Radiographic dye allergy status
CPT/HCPCS: 36415; 71046; 80053; 83735; 83880; 84484; 85025; 85610; 85730; 93005

== ENCOUNTER → 2022-09-09 | Outpatient (CLI) | payer MEDICARE, MEDICAID | END | disposition home or self-care (01) | LOC: Rad HDHVI 14:03 | PROVIDERS: ATTEND Internal Medicine Cardiovascular Disease | DX: I08.8 Other rheumatic multiple valve diseases (principal); R00.2 Palpitations; R00.1 Bradycardia, unspecified | CPT/HCPCS: 93306 ==

== ENCOUNTER → 2022-09-21 | Outpatient (CLI) | payer MEDICARE, MEDICAID | END | disposition home or self-care (01) | LOC: Rad HDHVI 13:58 | PROVIDERS: ATTEND Internal Medicine Cardiovascular Disease | DX: R00.1 Bradycardia, unspecified (principal); I25.2 Old myocardial infarction; I48.0 Paroxysmal atrial fibrillation; I10 Essential (primary) hypertension; E78.00 Pure hypercholesterolemia, unspecified | CPT/HCPCS: 78452; 93017; 96374; A9500 ==

== ENCOUNTER → 2023-04-14 | Outpatient (CLI) | payer MEDICARE, BC ==
[~2023-04-14] MED LIST changes: -AMLO-489 PO; +AMLO1TAB22 PO; +GABA-339 PO; -LISI20TA28 PO; +LISI20TA56 PO
[2023-04-14 10:10] VITALS: BP 138/86; PULSE 62; RESP 16; O2SAT 99
[2023-04-14 10:48] VITALS: BP 145/62; PULSE 62; RESP 16; O2SAT 99
== END | disposition home or self-care (01) ==
LOC: Rad HDHVI 10:02
PROVIDERS: ATTEND Internal Medicine Cardiovascular Disease
DX: Z01.818 Encounter for other preprocedural examination (principal); I11.9 Hypertensive heart disease without heart failure; R94.31 Abnormal electrocardiogram [ECG] [EKG]; R07.89 Other chest pain; R00.1 Bradycardia, unspecified; I48.0 Paroxysmal atrial fibrillation
CPT/HCPCS: 71046; 93005; G0463

== ENCOUNTER 2023-04-15 08:45 | Inpatient (IN) | payer MEDICARE, BC, OTHER ==
[2023-04-14 12:20] LABS: Basophils # (auto) 0.1 10 ^3/uL (0-0.2); Basophils % (auto) 1.5 % (0.0-2.0); Eosinophils # (auto) 0.1 10 ^3/uL (0-0.8); Eosinophils % (auto) 1.7 % (0.0-7.0); Hematocrit 42.8 % (36.0-46.0); Hemoglobin 14.3 g/dL (12.2-16.2); Lymphocytes # (auto) 2.1 10 ^3/uL (0.4-5.4); Lymphocytes % (auto) 53.3 % (10.0-50.0); Mean Corpuscular Hemoglobin 31.5 pg (28.0-32.0); Mean Corpuscular Hgb Conc. 33.3 g/dL (32.0-36.0); Mean Corpuscular Volume 94.6 fL (80.0-100.0); Monocytes # (auto) 0.4 10 ^3/uL (0-1.3); Monocytes % (auto) 9.3 % (0.0-12.0); Neutrophils # (auto) 1.3 10 ^3/uL (1.6-8.6); Neutrophils % (auto) 34.2 % (37.0-80.0); Nucleated Red Blood Cells % 0.5 %; Red Blood Cells 4.53 10^6/uL (4.0-5.20); Red Cell Distribution Width 13.5 % (11.8-14.3); White Blood Cell 3.8 10^3/uL (4.4-10.8)
[2023-04-14 12:29] LABS: BUN/Creatinine Ratio 16.3 (10.0-20.0); Calcium 10.1 mg/dL (8.5-10.1)
[2023-04-14 12:55] LABS: INR 1.04 (0.9-1.15); Partial Thromboplastin Time 27.1 SEC (24.5-34.5); Prothrombin Time 10.9 sec (9.3-11.8)
[2023-04-15] VITALS (9 sets, daily range): BP systolic 119–154; BP diastolic 74–91; PULSE 60–65; RESP 12–26; TEMP 97.5–97.6; O2SAT 96–100
[~2023-04-15] VITALS: Ht 160 cm; Wt 77.8 kg
[~2023-04-15 08:45] MED LIST changes: -AML5T PO; -CLO01T PO; -HYDR-4298 PO; -HYDR25TA4 PO; -HYDR25TA5 PO; -LISI20TA56 PO; -MET25T PO; -METO25TA93 PO; -PRED20TA2 PO
[2023-04-15] MEDS ORDERED: VANCOMYCIN 1GM/250ML 250 ML IV ONE (09:30)
[2023-04-15] MEDS ORDERED: VANCOMYCIN HCL 1000 MG VL ONE (15:28)
[2023-04-15] MEDS ORDERED: fentaNYL CITRATE 100 MCG/2 ML VL ONE (15:28)
[2023-04-15] MEDS ORDERED: MIDAZOLAM HCL 2MG/2ML 2ml VIAL (1mg/ml) ONE (15:29)
[2023-04-15] MEDS ORDERED: LIDOCAINE 2%HCL (LOCAL ANESTH.) INJ 20ML MDV ONE (15:29)
[2023-04-15] MEDS ORDERED: diphenhdrAMINE HCL 50 MG/1 ML VL ONE (16:01)
[2023-04-15] MEDS: ceFAZolin 1GM/50ML 50 ML IV SCH (18:53)
[2023-04-15] MEDS ORDERED: ACETAMINOPHEN 325 MG TAB PO PRN (19:00)
[2023-04-15] MEDS: GABAPENTIN 300 MG CAP PO SCH (21:33)
[2023-04-15] MEDS: SACUBITRIL-VALSARTAN 24mg/26mg TAB PO SCH (21:34)
[2023-04-16] MEDS: ceFAZolin 1GM/50ML 50 ML IV SCH (01:24)
[2023-04-16] MEDS ORDERED: VANCOMYCIN 1GM/250ML 250 ML IV SCH (02:40)
[2023-04-16 05:00] VITALS: BP 136/77; PULSE 60; RESP 16; TEMP 98.1; O2SAT 96
[2023-04-16] MEDS: GABAPENTIN 300 MG CAP PO SCH ×2 (05:16→14:28)
[2023-04-16 08:00] VITALS: BP 125/77; PULSE 60; RESP 18; TEMP 98.1; O2SAT 99
[2023-04-16 08:10] VITALS: PULSE 60
[2023-04-16] MEDS: SACUBITRIL-VALSARTAN 24mg/26mg TAB PO SCH (09:16)
[2023-04-16] MEDS ORDERED: POTASSIUM CHL 20 Meq TABLET PO SCH (10:00)
[2023-04-16] MEDS ORDERED: amLODIPine BESYLATE 5 MG TAB PO SCH (10:00)
[2023-04-16 12:00] VITALS: BP 110/74; PULSE 60; RESP 16; TEMP 97.8; O2SAT 99
[2023-04-16 16:00] VITALS: BP 127/79; PULSE 61; RESP 16; TEMP 97.8; O2SAT 98
== END 2023-04-16 18:40 | disposition home or self-care (01) | DRG 244 ==
LOC: CATH 08:45 → TELE 17:25 → TELE-CENTR 18:53
PROVIDERS: ADMIT Internal Medicine Cardiovascular Disease; ATTEND Internal Medicine Cardiovascular Disease
PROC: 0JH606Z Insertion of Pacemaker, Dual Chamber into Chest Subcutaneous Tissue and Fascia, Open Approach (ICD-10-PCS; principal; 2023-04-15)
PROC: 02H63JZ Insertion of Pacemaker Lead into Right Atrium, Percutaneous Approach (ICD-10-PCS; 2023-04-15)
PROC: 02HK3JZ Insertion of Pacemaker Lead into Right Ventricle, Percutaneous Approach (ICD-10-PCS; 2023-04-15)
DX: I49.5 Sick sinus syndrome (principal); I48.0 Paroxysmal atrial fibrillation; E78.5 Hyperlipidemia, unspecified; I10 Essential (primary) hypertension; I25.2 Old myocardial infarction; Z79.01 Long term (current) use of anticoagulants; Z82.49 Family history of ischemic heart disease and other diseases of the circulatory system; Z86.73 Personal history of transient ischemic attack (TIA), and cerebral infarction without residual deficits; Z87.891 Personal history of nicotine dependence
CPT/HCPCS: 33208; 36415; 71045; 71046; 80048; 85025; 85610; 85730; 93005; 99152; 99153; G0378; G0463; J0690; J2250

== ENCOUNTER 2023-08-19 10:44 | Inpatient (IN) | payer MEDICARE, BC, OTHER ==
[~2023-08-19] VITALS: Ht 160 cm; Wt 72.8 kg
[~2023-08-19 10:44] MED LIST changes: -RIVA10TA PO
[2023-08-19 11:08] LABS: Hematocrit 42.3 % (36.0-46.0); Mean Corpuscular Hemoglobin 31.2 pg (28.0-32.0); Mean Corpuscular Volume 94.5 fL (80.0-100.0); Red Blood Cells 4.48 10^6/uL (4.0-5.20); Red Cell Distribution Width 13.8 % (11.8-14.3); White Blood Cell 4.2 10^3/uL (4.4-10.8)
[2023-08-19 11:13] LABS: Basophils % (manual) 0 (0.0-2.0); Blast Cells 0; Promyelocytes % 0; Reactive Lymphocytes 0
[2023-08-19 11:23] LABS: Alanine Aminotransferase 32 U/L (7-40); Albumin 4.5 g/dL (3.2-4.8); Alkaline Phosphatase 95 U/L (46-116); Anion Gap 6 (5-15); Aspartate Aminotransferase 29 U/L (13-40); BUN/Creatinine Ratio 19.8 (10.0-20.0); Bilirubin, Total 0.9 mg/dL (0.2-1.0); Blood Urea Nitrogen 19 mg/dL (9-23); Calcium 10.4 mg/dL (8.5-10.1); Carbon Dioxide 28 mmol/L (20-30); Chloride 107 mmol/L (98-107); Glucose 74 mg/dL (74-106); Potassium 3.9 mmol/L (3.5-5.1); Sodium 141 mmol/L (136-145); Total Protein 7.2 g/dL (5.7-8.2)
[2023-08-19 11:57] LABS: Band Neutrophils % (manual) 8; Eosinophils % (manual) 2 (0-7); Lymphocytes % (manual) 24 (10.0-50.0); Metamyelocytes % 10; Monocytes % (manual) 10 (0-12); Myelocytes % 13; Platelet Estimate Adequate
[2023-08-19] MEDS ORDERED: DOCUSATE SOD 100 MG CAP PO PRN (12:45)
[2023-08-19] MEDS ORDERED: ACETAMINOPHEN 325 MG TAB PO PRN (12:45)
[2023-08-19] MEDS ORDERED: ONDANSETRON HCL 4 MG/2 ML VIAL IV PRN (12:45)
[2023-08-19] MEDS ORDERED: MORPHINE SULFATE INJ 2 MG/ml SYRG IV PRN (12:45)
[2023-08-19] MEDS ORDERED: NITROGLYCERIN 0.4 MG SL TAB SL PRN (12:45)
[2023-08-19] MEDS ORDERED: POTA-264 PO (13:03)
[2023-08-19] MEDS ORDERED: PREG-109 PO (13:03)
[2023-08-19] MEDS ORDERED: AMLO1TAB23 PO (13:03)
[2023-08-19] MEDS ORDERED: ROSU10TA64 PO (13:03)
[2023-08-19] MEDS ORDERED: AMIO200T13 PO (13:03)
[2023-08-19] MEDS ORDERED: LEVO75TA6 PO (13:03)
[2023-08-19] MEDS ORDERED: RIVA2.5T PO (13:03)
[2023-08-19 18:44] VITALS: PULSE 61; RESP 18; O2SAT 99
[2023-08-19 19:45] VITALS: PULSE 67; RESP 16; O2SAT 97
[2023-08-19] MEDS: ATORVASTATIN 20 MG TAB PO SCH ×2 (22:00→22:29)
[2023-08-19] MEDS: PREGABALIN CAPSULE 75 MG CAP PO SCH ×2 (22:00→22:29)
[2023-08-19] MEDS: Sacubitril-Valsartan (Entresto 49-51 mg) 1 TAB PO SCH (22:00)
[2023-08-20 00:17] VITALS: BP 113/71; PULSE 60; RESP 18; TEMP 97.9; O2SAT 98
[2023-08-20 05:00] VITALS: BP 115/75; PULSE 75; RESP 19; O2SAT 100
[2023-08-20 05:39] LABS: Basophils # (auto) 0.1 10 ^3/uL (0-0.2); Basophils % (auto) 1.3 % (0.0-2.0); Eosinophils # (auto) 0.1 10 ^3/uL (0-0.8); Eosinophils % (auto) 1.5 % (0.0-7.0); Hematocrit 36.8 % (36.0-46.0); Hemoglobin 12.4 g/dL (12.2-16.2); Lymphocytes # (auto) 2.1 10 ^3/uL (0.4-5.4); Lymphocytes % (auto) 51.7 % (10.0-50.0); Mean Corpuscular Hemoglobin 31.5 pg (28.0-32.0); Mean Corpuscular Hgb Conc. 33.7 g/dL (32.0-36.0); Mean Corpuscular Volume 93.6 fL (80.0-100.0); Monocytes # (auto) 0.5 10 ^3/uL (0-1.3); Monocytes % (auto) 12.6 % (0.0-12.0); Neutrophils # (auto) 1.4 10 ^3/uL (1.6-8.6); Neutrophils % (auto) 32.9 % (37.0-80.0); Nucleated Red Blood Cells % 0.2 %; Red Blood Cells 3.93 10^6/uL (4.0-5.20); Red Cell Distribution Width 13.6 % (11.8-14.3); White Blood Cell 4.1 10^3/uL (4.4-10.8)
[2023-08-20 06:04] LABS: Alanine Aminotransferase 24 U/L (7-40); Albumin 3.9 g/dL (3.2-4.8); Alkaline Phosphatase 81 U/L (46-116); Anion Gap 10 (5-15); Aspartate Aminotransferase 20 U/L (13-40); BUN/Creatinine Ratio 19.8 (10.0-20.0); Bilirubin, Total 0.7 mg/dL (0.2-1.0); Blood Urea Nitrogen 19 mg/dL (9-23); Calcium 10.2 mg/dL (8.5-10.1); Carbon Dioxide 26 mmol/L (20-30); Chloride 109 mmol/L (98-107); Glucose 79 mg/dL (74-106); Potassium 3.3 mmol/L (3.5-5.1); Sodium 145 mmol/L (136-145); Total Protein 6.5 g/dL (5.7-8.2)
[2023-08-20] MEDS ORDERED: LEVOTHYROXINE SODIUM 25 MCG TAB PO SCH (07:00)
[2023-08-20] MEDS ORDERED: LEVOTHYROXINE SODIUM 50 MCG TAB PO SCH (07:00)
[2023-08-20 08:00] VITALS: PULSE 60; PULSE 62; RESP 17; O2SAT 94
[2023-08-20] MEDS ORDERED: PATIENTS OWN MEDICATION (Amlodipine Besylate 1 TAB) PO SCH (10:00)
[2023-08-20] MEDS ORDERED: amLODIPine BESYLATE 5 MG TAB PO SCH (10:00)
[2023-08-20] MEDS ORDERED: RIVAROXABAN 2.5 MG TAB PO SCH (10:00)
[2023-08-20] MEDS: Sacubitril-Valsartan (Entresto 49-51 mg) 1 TAB PO SCH (10:00)
[2023-08-20] MEDS ORDERED: AMIODARONE HCL 200 MG TAB PO SCH (10:00)
[2023-08-20] MEDS ORDERED: POTASSIUM CHL 10 Meq TABLET PO SCH (10:00)
[2023-08-20 10:22] VITALS: BP 120/80; PULSE 69; RESP 17; O2SAT 99
[2023-08-20] MEDS: PREGABALIN CAPSULE 75 MG CAP PO SCH (10:29)
[2023-08-20] MEDS ORDERED: POTASSIUM EFFERVESENT TAB 25 MEQ PO ONE (13:00)
[2023-08-20 15:17] VITALS: BP 112/71; PULSE 60; RESP 17; TEMP 36.6; O2SAT 94
[2023-08-20 15:30] VITALS: BP 126/78; PULSE 57; RESP 18; TEMP 97.7; O2SAT 98
== END 2023-08-20 16:53 | disposition home or self-care (01) | DRG 313 ==
LOC: ER 10:44 → TELE 13:02 → TELE-WESTW 21:40
PROVIDERS: ADMIT Internal Medicine; ATTEND Internal Medicine
DX: R07.89 Other chest pain (principal); I49.5 Sick sinus syndrome; E78.5 Hyperlipidemia, unspecified; E89.0 Postprocedural hypothyroidism; I10 Essential (primary) hypertension; I25.10 Atherosclerotic heart disease of native coronary artery without angina pectoris; I48.0 Paroxysmal atrial fibrillation; Z79.01 Long term (current) use of anticoagulants; I25.2 Old myocardial infarction; Z80.0 Family history of malignant neoplasm of digestive organs; Z82.49 Family history of ischemic heart disease and other diseases of the circulatory system; Z86.73 Personal history of transient ischemic attack (TIA), and cerebral infarction without residual deficits; Z87.891 Personal history of nicotine dependence; Z90.710 Acquired absence of both cervix and uterus; Z91.041 Radiographic dye allergy status
CPT/HCPCS: 36415; 71045; 80053; 84484; 85007; 85025; 85027; 93005; G0378

== ENCOUNTER → 2023-09-02 | Outpatient (CLI) | payer MEDICARE, BC ==
[~2023-09-02] MED LIST changes: +AMIO200T13 PO; +AMLO1TAB23 PO; +LEVO75TA6 PO; +POTA-264 PO; +PREG-109 PO; +RIVA2.5T PO; +ROSU10TA64 PO
== END | disposition home or self-care (01) ==
LOC: Rad HDHVI 09:53
PROVIDERS: ATTEND Internal Medicine Cardiovascular Disease
DX: I08.1 Rheumatic disorders of both mitral and tricuspid valves (principal); R07.89 Other chest pain
CPT/HCPCS: 93306

== ENCOUNTER 2024-02-24 00:41 | Inpatient (IN) | payer MEDICARE, OTHER ==
[~2024-02-24] VITALS: Ht 160 cm; Wt 67.7 kg
[~2024-02-24 00:41] MED LIST changes: -PREG-109 PO; +PREG75CA90 PO
[2024-02-24 02:57] VITALS: PULSE 60; RESP 16; O2SAT 96
[2024-02-24] MEDS: MORPHINE SULFATE 4 MG/ML SYR/VIAL IV ONE ×2 (03:47→08:50)
[2024-02-24] MEDS: ONDANSETRON HCL 4 MG/2 ML VIAL IV ONE ×2 (03:48→08:50)
[2024-02-24 03:59] LABS: Basophils # (auto) 0 10 ^3/uL (0-0.2); Basophils % (auto) 0.2 % (0.0-2.0); Eosinophils # (auto) 0 10 ^3/uL (0-0.8); Eosinophils % (auto) 0.1 % (0.0-7.0); Hematocrit 36.8 % (36.0-46.0); Hemoglobin 12.4 g/dL (12.2-16.2); Lymphocytes # (auto) 1.9 10 ^3/uL (0.4-5.4); Mean Corpuscular Hemoglobin 31.8 pg (28.0-32.0); Mean Corpuscular Hgb Conc. 33.6 g/dL (32.0-36.0); Mean Corpuscular Volume 94.8 fL (80.0-100.0); Monocytes # (auto) 0.6 10 ^3/uL (0-1.3); Monocytes % (auto) 14.1 % (0.0-12.0); Neutrophils # (auto) 1.8 10 ^3/uL (1.6-8.6); Neutrophils % (auto) 41.6 % (37.0-80.0); Nucleated Red Blood Cells % 0.1 %; Red Blood Cells 3.88 10^6/uL (4.0-5.20); White Blood Cell 4.4 10^3/uL (4.4-10.8)
[2024-02-24 04:13] LABS: INR 1.05 (0.9-1.15); Partial Thromboplastin Time 28.7 SEC (24.5-34.5); Prothrombin Time 11.1 sec (9.3-11.8)
[2024-02-24 04:14] LABS: Chloride 108 mmol/L (98-107); Potassium 3.2 mmol/L (3.5-5.1); Sodium 142 mmol/L (136-145)
[2024-02-24 04:15] LABS: Anion Gap 5 (5-15); Carbon Dioxide 29 mmol/L (20-30)
[2024-02-24 04:16] LABS: Calcium 10.2 mg/dL (8.5-10.1)
[2024-02-24 04:20] LABS: BUN/Creatinine Ratio 15.9 (10.0-20.0); Blood Urea Nitrogen 14 mg/dL (9-23); Glucose 89 mg/dL (74-106)
[2024-02-24 08:30] VITALS: PULSE 60; RESP 18; O2SAT 97
[2024-02-24 09:16] LABS: Urine Bacteria FEW /hpf (None Seen); Urine Blood Negative /uL (Negative); Urine Clarity Clear (Clear); Urine Color Colorless (Yellow); Urine Protein, UAD Negative (Negative); Urine Specific Gravity 1.011 (1.001-1.035); Urine Urobilinogen Normal (Negative); Urine WBC 1 /hpf (0 - 5)
[2024-02-24] MEDS ORDERED: RIVAROXABAN 10 MG TAB PO SCH (10:00)
[2024-02-24] MEDS: SACUBITRIL-VALSARTAN 24mg/26mg TAB PO SCH (11:20)
[2024-02-24] MEDS: amLODIPine BESYLATE 5 MG TAB PO SCH (11:20)
[2024-02-24] MEDS: AMIODARONE HCL 200 MG TAB PO SCH (11:21)
[2024-02-24] MEDS: LEVOTHYROXINE SODIUM 50 MCG TAB PO SCH (11:22)
[2024-02-24] MEDS: LEVOTHYROXINE SODIUM 25 MCG TAB PO SCH (11:22)
[2024-02-24] MEDS: ASPirin-EC 81 mg tab PO SCH (11:22)
[2024-02-24] MEDS: ENOXAPARIN SOD 40 MG/0.4 ML SYRINGE SC SCH (11:24)
[2024-02-24] MEDS: POTASSIUM CHLORIDE 60 MEQ, LIDOCAINE 1% (LOCAL ANESTH.) 6 ML in SODIUM CHL 0.9% 500 ML IV ONE (11:54)
[2024-02-24] MEDS: SODIUM CHLORIDE 0.9% 1,000 ML IV SCH (13:00)
[2024-02-24 15:34] VITALS: PULSE 60; RESP 16; O2SAT 99
[2024-02-24 20:10] VITALS: PULSE 60; RESP 18; O2SAT 92
[2024-02-24 21:00] VITALS: BP 112/76; PULSE 60; RESP 16; TEMP 97.4; O2SAT 99
[2024-02-24] MEDS: PREGABALIN CAPSULE 75 MG CAP PO SCH (22:00)
[2024-02-25] VITALS (8 sets, daily range): BP systolic 102–141; BP diastolic 69–81; PULSE 60–68; RESP 15–18; TEMP 97.4–99.7; O2SAT 96–100
[2024-02-25] MEDS ORDERED: LEVOTHYROXINE SODIUM 25 MCG TAB PO SCH (07:00)
[2024-02-25 07:01] LABS: Basophils # (auto) 0 10 ^3/uL (0-0.2); Basophils % (auto) 0.1 % (0.0-2.0); Eosinophils # (auto) 0 10 ^3/uL (0-0.8); Eosinophils % (auto) 0.2 % (0.0-7.0); Hematocrit 37.6 % (36.0-46.0); Hemoglobin 12.8 g/dL (12.2-16.2); Lymphocytes # (auto) 1.8 10 ^3/uL (0.4-5.4); Lymphocytes % (auto) 54.2 % (10.0-50.0); Mean Corpuscular Hemoglobin 32.3 pg (28.0-32.0); Mean Corpuscular Hgb Conc. 34.1 g/dL (32.0-36.0); Mean Corpuscular Volume 94.8 fL (80.0-100.0); Monocytes # (auto) 0.4 10 ^3/uL (0-1.3); Monocytes % (auto) 12.9 % (0.0-12.0); Neutrophils # (auto) 1.1 10 ^3/uL (1.6-8.6); Neutrophils % (auto) 32.6 % (37.0-80.0); Red Blood Cells 3.96 10^6/uL (4.0-5.20); Red Cell Distribution Width 13.9 % (11.8-14.3); White Blood Cell 3.3 10^3/uL (4.4-10.8)
[2024-02-25 07:39] LABS: Alanine Aminotransferase 67 U/L (7-40); Albumin 3.6 g/dL (3.2-4.8); Alkaline Phosphatase 62 U/L (46-116); Anion Gap 7 (5-15); Aspartate Aminotransferase 48 U/L (13-40); BUN/Creatinine Ratio 8.8 (10.0-20.0); Bilirubin, Total 0.5 mg/dL (0.2-1.0); Blood Urea Nitrogen 6 mg/dL (9-23); Calcium 9.6 mg/dL (8.5-10.1); Carbon Dioxide 21 mmol/L (20-30); Chloride 111 mmol/L (98-107); Glucose 66 mg/dL (74-106); Magnesium 1.8 mg/dL (1.6-2.6); Potassium 3.6 mmol/L (3.5-5.1); Sodium 139 mmol/L (136-145); Total Protein 6.3 g/dL (5.7-8.2)
[2024-02-25] MEDS ORDERED: RIVAROXABAN 2.5 MG TAB PO SCH (10:00)
[2024-02-25] MEDS: AMIODARONE HCL 200 MG TAB PO SCH (10:15)
[2024-02-25] MEDS: POTASSIUM CHL 20 Meq TABLET PO ONE (12:45)
[2024-02-25] MEDS ORDERED: amLODIPine BESYLATE 5 MG TAB PO SCH (22:00)
[2024-02-25] MEDS: amLODIPine BESYLATE 5 MG TAB PO ONE (23:15)
[2024-02-26 05:00] VITALS: BP 125/75; PULSE 60; RESP 17; TEMP 98.2; O2SAT 97
[2024-02-26 06:08] LABS: Basophils # (auto) 0 10 ^3/uL (0-0.2); Basophils % (auto) 0.3 % (0.0-2.0); Eosinophils # (auto) 0 10 ^3/uL (0-0.8); Eosinophils % (auto) 0.1 % (0.0-7.0); Hematocrit 35.9 % (36.0-46.0); Hemoglobin 12.1 g/dL (12.2-16.2); Lymphocytes # (auto) 2.1 10 ^3/uL (0.4-5.4); Lymphocytes % (auto) 53.2 % (10.0-50.0); Mean Corpuscular Hemoglobin 32.3 pg (28.0-32.0); Mean Corpuscular Hgb Conc. 33.8 g/dL (32.0-36.0); Mean Corpuscular Volume 95.6 fL (80.0-100.0); Monocytes # (auto) 0.5 10 ^3/uL (0-1.3); Monocytes % (auto) 12.5 % (0.0-12.0); Neutrophils # (auto) 1.3 10 ^3/uL (1.6-8.6); Neutrophils % (auto) 33.9 % (37.0-80.0); Nucleated Red Blood Cells % 0.1 %; Red Blood Cells 3.75 10^6/uL (4.0-5.20); Red Cell Distribution Width 13.5 % (11.8-14.3); White Blood Cell 3.9 10^3/uL (4.4-10.8)
[2024-02-26 06:17] LABS: Chloride 107 mmol/L (98-107); Potassium 3.1 mmol/L (3.5-5.1); Sodium 142 mmol/L (136-145)
[2024-02-26 06:18] LABS: Anion Gap 6 (5-15); Carbon Dioxide 29 mmol/L (20-30)
[2024-02-26 06:19] LABS: Calcium 9.6 mg/dL (8.7-10.4)
[2024-02-26 06:23] LABS: Glucose 79 mg/dL (74-106)
[2024-02-26 06:24] LABS: Blood Urea Nitrogen 8 mg/dL (9-23); Magnesium 1.7 mg/dL (1.6-2.6)
[2024-02-26 08:01] VITALS: RESP 18; O2SAT 98
[2024-02-26] MEDS: POTASSIUM CHL 20 Meq TABLET PO SCH (08:13)
[2024-02-26] MEDS: amLODIPine BESYLATE 5 MG TAB PO SCH (08:14)
[2024-02-26 09:00] VITALS: BP 128/78; PULSE 60; RESP 17; TEMP 98; O2SAT 97
[2024-02-26 12:48] VITALS: BP 115/76; PULSE 53; RESP 17; TEMP 98.5; O2SAT 98
[2024-02-26 17:00] VITALS: BP 110/75; PULSE 61; RESP 17; TEMP 97.9; O2SAT 99
[2024-02-26 21:00] VITALS: BP 117/75; PULSE 60; RESP 18; TEMP 98.5; O2SAT 96
[2024-02-27 05:00] VITALS: BP 133/84; PULSE 60; RESP 18; TEMP 98.4; O2SAT 98
[2024-02-27 08:06] VITALS: BP 137/82; PULSE 60; RESP 16; TEMP 97.7; O2SAT 100
[2024-02-27 13:00] VITALS: BP 118/71; PULSE 60; RESP 16; TEMP 97.7; O2SAT 97
[2024-02-27 17:00] VITALS: BP 135/86; PULSE 57; RESP 16; TEMP 98.4; O2SAT 99
[2024-02-27 21:00] VITALS: BP 128/77; PULSE 60; RESP 18; TEMP 98.3; O2SAT 94
[2024-02-27] MEDS ORDERED: amLODIPine BESYLATE 5 MG TAB PO SCH (22:00)
[2024-02-27] MEDS: amLODIPine BESYLATE 5 MG TAB PO SCH (22:18)
[2024-02-27] MEDS: ATORVASTATIN 20 MG TAB PO SCH (22:19)
[2024-02-27] MEDS: TEMAZEPAM 15 MG CAP PO PRN (22:53)
[2024-02-28] VITALS (9 sets, daily range): BP systolic 120–137; BP diastolic 66–77; PULSE 60–64; RESP 15–20; TEMP 97.6–98.3; O2SAT 92–100
[2024-02-28 06:24] LABS: INR 1.06 (0.9-1.15); Prothrombin Time 11.2 sec (9.3-11.8)
[2024-02-28] MEDS ORDERED: ceFAZolin 2 GM/D5W50ml 50 ML IV ONE (08:30)
[2024-02-28] MEDS ORDERED: VANCOMYCIN HCL 1000 MG VL ONE ×2 (09:32→10:40)
[2024-02-28] MEDS ORDERED: fentaNYL CITRATE 100 MCG/2 ML VL ONE (09:41)
[2024-02-28] MEDS ORDERED: MIDAZOLAM HCL 2MG/2ML 2ml VIAL (1mg/ml) ONE (09:42)
[2024-02-28] MEDS: VANCOMYCIN HCL 1000 MG VL XX ONE (10:45)
[2024-02-28] MEDS ORDERED: HYDROmorphone HCL 2 MG/ML VL/or syr IV PRN ×2 (10:45)
[2024-02-28] MEDS ORDERED: ONDANSETRON HCL 4 MG/2 ML VIAL IV ONE (10:45)
[2024-02-28] MEDS ORDERED: PROPOFOL 10 MG/ML 20 ML IV ONE (10:57)
[2024-02-28] MEDS ORDERED: ROCURONIUM 10MG/ML 10ML VIAL IV ONE (10:57)
[2024-02-28] MEDS ORDERED: LIDOCAINE 1% INJ PF 5ML AMP ONE (10:57)
[2024-02-28] MEDS ORDERED: ONDANSETRON HCL 4 MG/2 ML VIAL ONE (10:57)
[2024-02-28] MEDS ORDERED: GLYCOPYRROLATE 0.2 MG/ML 1ML VIAL ONE (11:14)
[2024-02-28] MEDS ORDERED: NEOSTIGMINE 1 MG/ML INJ (10mg/10ML VIAL) ONE (11:14)
[2024-02-28] MEDS: BUPIVACAINE 0.5% MPF INJ 30ML SDV IJ ONE (12:29)
[2024-02-28] MEDS: ceFAZolin 1GM/50ML 50 ML IV SCH (14:39)
[2024-02-28] MEDS: POTASSIUM EFFERVESENT TAB 25 MEQ PO ONE (14:39)
[2024-02-28] MEDS: HYDROcodone-ACET 10/325MG TAB PO PRN (17:42)
[2024-02-28] MEDS: MORPHINE SULFATE INJ 2 MG/ml SYRG IV PRN (22:01)
[2024-02-29] VITALS (8 sets, daily range): BP systolic 112–138; BP diastolic 68–78; PULSE 60–68; RESP 16–20; TEMP 97.5–98.8; O2SAT 91–98
[2024-02-29 06:02] LABS: Basophils # (auto) 0 10 ^3/uL (0-0.2); Basophils % (auto) 0.2 % (0.0-2.0); Eosinophils # (auto) 0 10 ^3/uL (0-0.8); Eosinophils % (auto) 0.1 % (0.0-7.0); Hematocrit 38.7 % (36.0-46.0); Hemoglobin 13.2 g/dL (12.2-16.2); Lymphocytes # (auto) 2.1 10 ^3/uL (0.4-5.4); Lymphocytes % (auto) 25.5 % (10.0-50.0); Mean Corpuscular Hemoglobin 31.8 pg (28.0-32.0); Mean Corpuscular Hgb Conc. 34.1 g/dL (32.0-36.0); Mean Corpuscular Volume 93.2 fL (80.0-100.0); Monocytes # (auto) 1.2 10 ^3/uL (0-1.3); Monocytes % (auto) 14.7 % (0.0-12.0); Neutrophils # (auto) 4.9 10 ^3/uL (1.6-8.6); Neutrophils % (auto) 59.5 % (37.0-80.0); Nucleated Red Blood Cells % 0.3 %; Red Blood Cells 4.16 10^6/uL (4.0-5.20); White Blood Cell 8.2 10^3/uL (4.4-10.8)
[2024-02-29 06:18] LABS: Alanine Aminotransferase 24 U/L (7-40); Albumin 3.7 g/dL (3.2-4.8); Alkaline Phosphatase 67 U/L (46-116); Anion Gap 7 (5-15); Aspartate Aminotransferase 15 U/L (13-40); BUN/Creatinine Ratio 9.3 (10.0-20.0); Blood Urea Nitrogen 7 mg/dL (9-23); Calcium 9.6 mg/dL (8.5-10.1); Carbon Dioxide 25 mmol/L (20-30); Chloride 105 mmol/L (98-107); Glucose 97 mg/dL (74-106); Potassium 3.2 mmol/L (3.5-5.1); Sodium 137 mmol/L (136-145)
[2024-02-29 06:19] LABS: Bilirubin, Total 0.8 mg/dL (0.2-1.0); Total Protein 6.4 g/dL (5.7-8.2)
[2024-02-29] MEDS: POTASSIUM EFFERVESENT TAB 25 MEQ PO ONE (14:28)
[2024-03-01 06:32] LABS: Anion Gap 5 (5-15); Carbon Dioxide 28 mmol/L (20-30); Chloride 107 mmol/L (98-107); Potassium 3.5 mmol/L (3.5-5.1); Sodium 140 mmol/L (136-145)
[2024-03-01 06:34] LABS: Calcium 9.9 mg/dL (8.7-10.4)
[2024-03-01 06:38] LABS: Glucose 75 mg/dL (74-106)
[2024-03-01 06:39] LABS: BUN/Creatinine Ratio 11.8 (10.0-20.0); Blood Urea Nitrogen 8 mg/dL (9-23)
[2024-03-01 06:55] VITALS: BP 142/81; PULSE 60; RESP 18; TEMP 98.6; O2SAT 97
[2024-03-01 06:56] VITALS: BP 139/77; PULSE 63; RESP 17; TEMP 98.2; O2SAT 94
[2024-03-01 08:55] VITALS: BP 136/78; PULSE 62; RESP 20; TEMP 98.7; O2SAT 97
[2024-03-01] MEDS: Ensure HIGH Protein Chocolate 8oz Bottle PO SCH (12:00)
[2024-03-01 13:10] VITALS: BP 127/71; PULSE 62; RESP 18; TEMP 99; O2SAT 98
[2024-03-01] MEDS: KETOROLAC TROMETH 30 MG/ML 1ML VIAL IV PRN (16:15)
[2024-03-01] MEDS: POTASSIUM EFFERVESENT TAB 25 MEQ PO ONE (16:22)
[2024-03-01 16:40] VITALS: BP 111/71; PULSE 60; RESP 18; TEMP 98.9; O2SAT 97
[2024-03-01 21:00] VITALS: BP 115/70; PULSE 60; RESP 16; TEMP 97.5; O2SAT 99
[2024-03-02] VITALS (8 sets, daily range): BP systolic 100–116; BP diastolic 58–69; PULSE 60–64; RESP 16–17; TEMP 97.3–98.2; O2SAT 97–100
[2024-03-02 07:30] LABS: Urine Bacteria FEW /hpf (None Seen); Urine Blood TRACE /uL (Negative); Urine Clarity Turbid (Clear); Urine Color Light-Yellow (Yellow); Urine Protein, UAD Negative (Negative); Urine Specific Gravity 1.009 (1.001-1.035); Urine Urobilinogen 4 mg/dL (Negative); Urine WBC 143 /hpf (0 - 5); Urine pH 7.5 (5.0-9.0)
[2024-03-02 09:21] LABS: Chloride 111 mmol/L (98-107); Potassium 3.8 mmol/L (3.5-5.1); Sodium 140 mmol/L (136-145)
[2024-03-02 09:22] LABS: Anion Gap 4 (5-15); Carbon Dioxide 25 mmol/L (20-30)
[2024-03-02 09:23] LABS: Calcium 9.7 mg/dL (8.5-10.1)
[2024-03-02 09:27] LABS: BUN/Creatinine Ratio 13.4 (10.0-20.0); Blood Urea Nitrogen 9 mg/dL (9-23); Glucose 116 mg/dL (74-106)
[2024-03-02] MEDS: POTASSIUM CHL 20 Meq TABLET PO SCH (15:52)
[2024-03-03] VITALS (8 sets, daily range): BP systolic 103–125; BP diastolic 59–78; PULSE 60–72; RESP 16–20; TEMP 97.8–98.6; O2SAT 91–99
[2024-03-03 08:42] LABS: Basophils # (auto) 0 10 ^3/uL (0-0.2); Basophils % (auto) 0.4 % (0.0-2.0); Eosinophils # (auto) 0.1 10 ^3/uL (0-0.8); Eosinophils % (auto) 1.6 % (0.0-7.0); Hematocrit 35.8 % (36.0-46.0); Hemoglobin 12.1 g/dL (12.2-16.2); Lymphocytes # (auto) 1.8 10 ^3/uL (0.4-5.4); Lymphocytes % (auto) 33.4 % (10.0-50.0); Mean Corpuscular Hemoglobin 32.2 pg (28.0-32.0); Mean Corpuscular Hgb Conc. 33.7 g/dL (32.0-36.0); Mean Corpuscular Volume 95.5 fL (80.0-100.0); Monocytes # (auto) 0.8 10 ^3/uL (0-1.3); Neutrophils # (auto) 2.7 10 ^3/uL (1.6-8.6); Neutrophils % (auto) 49.6 % (37.0-80.0); Nucleated Red Blood Cells % 0.4 %; Red Blood Cells 3.75 10^6/uL (4.0-5.20); Red Cell Distribution Width 13.1 % (11.8-14.3); White Blood Cell 5.4 10^3/uL (4.4-10.8)
[2024-03-03 08:47] LABS: Anion Gap 7 (5-15); Carbon Dioxide 24 mmol/L (20-30); Chloride 110 mmol/L (98-107); Potassium 3.6 mmol/L (3.5-5.1); Sodium 141 mmol/L (136-145)
[2024-03-03 08:48] LABS: Calcium 9.6 mg/dL (8.5-10.1)
[2024-03-03 08:53] LABS: BUN/Creatinine Ratio 16.1 (10.0-20.0); Blood Urea Nitrogen 10 mg/dL (9-23); Glucose 70 mg/dL (74-106)
[2024-03-03] MEDS: MAGNESIUM CITRATE SOLUTION 300 ML BTL PO ONE (12:51)
[2024-03-03] MEDS: RIVAROXABAN 2.5 MG TAB PO SCH (12:51)
[2024-03-04] VITALS (7 sets, daily range): BP systolic 102–133; BP diastolic 61–79; PULSE 45–69; RESP 15–18; TEMP 97.3–98.7; O2SAT 94–99
[2024-03-04] MEDS: SPIRONOLACTONE 25 MG TAB PO SCH (10:31)
[2024-03-04 12:24] LABS: Chloride 109 mmol/L (98-107); Potassium 3.5 mmol/L (3.5-5.1); Sodium 141 mmol/L (136-145)
[2024-03-04 12:25] LABS: Anion Gap 4 (5-15); Carbon Dioxide 28 mmol/L (20-30)
[2024-03-04 12:26] LABS: Calcium 9.9 mg/dL (8.7-10.4)
[2024-03-04 12:30] LABS: BUN/Creatinine Ratio 18.8 (10.0-20.0); Blood Urea Nitrogen 12 mg/dL (9-23); Glucose 124 mg/dL (74-106)
[2024-03-04] MEDS: FLEET ENEMA(ADULT) 135 ML PR ONE (18:39)
[2024-03-05] VITALS (7 sets, daily range): BP systolic 95–145; BP diastolic 53–77; PULSE 60–84; RESP 16–20; TEMP 97.8–98.5; O2SAT 96–100
[2024-03-06] VITALS (8 sets, daily range): BP systolic 96–138; BP diastolic 51–78; PULSE 60–61; RESP 16–18; TEMP 97.4–98.4; O2SAT 92–100
[2024-03-06 10:58] LABS: Basophils # (auto) 0 10 ^3/uL (0-0.2); Basophils % (auto) 0.4 % (0.0-2.0); Eosinophils # (auto) 0 10 ^3/uL (0-0.8); Eosinophils % (auto) 0.8 % (0.0-7.0); Hematocrit 34.2 % (36.0-46.0); Hemoglobin 11.5 g/dL (12.2-16.2); Lymphocytes # (auto) 1.6 10 ^3/uL (0.4-5.4); Lymphocytes % (auto) 30.5 % (10.0-50.0); Mean Corpuscular Hemoglobin 32.2 pg (28.0-32.0); Mean Corpuscular Hgb Conc. 33.8 g/dL (32.0-36.0); Mean Corpuscular Volume 95.4 fL (80.0-100.0); Monocytes # (auto) 0.6 10 ^3/uL (0-1.3); Monocytes % (auto) 10.7 % (0.0-12.0); Neutrophils % (auto) 57.6 % (37.0-80.0); Red Blood Cells 3.58 10^6/uL (4.0-5.20); Red Cell Distribution Width 13.5 % (11.8-14.3); White Blood Cell 5.2 10^3/uL (4.4-10.8)
[2024-03-06 11:06] LABS: Calcium 10.1 mg/dL (8.5-10.1); Chloride 109 mmol/L (98-107); Potassium 3.3 mmol/L (3.5-5.1); Sodium 140 mmol/L (136-145)
[2024-03-06 11:07] LABS: Anion Gap 5 (5-15); Carbon Dioxide 26 mmol/L (20-30)
[2024-03-06 11:12] LABS: BUN/Creatinine Ratio 18.4 (10.0-20.0); Blood Urea Nitrogen 14 mg/dL (9-23); Glucose 119 mg/dL (74-106)
[2024-03-06] MEDS: TEMAZEPAM 15 MG CAP PO PRN (23:32)
[2024-03-07 01:00] VITALS: BP 109/64; PULSE 61; RESP 16; TEMP 98; O2SAT 98
[2024-03-07 05:00] VITALS: BP 125/75; PULSE 60; RESP 18; TEMP 98; O2SAT 100
[2024-03-07 08:00] VITALS: PULSE 98; RESP 18; O2SAT 99
[2024-03-07 08:15] VITALS: BP 148/88; PULSE 98; RESP 18; TEMP 97.9; O2SAT 99
[2024-03-07 12:15] VITALS: BP 129/68; PULSE 62; RESP 16; TEMP 98.4; O2SAT 100
[2024-03-07] MEDS: KETOROLAC TROMETH 30 MG/ML 1ML VIAL IV PRN (13:42)
== END 2024-03-07 14:45 | disposition home health service (06) | DRG 516 ==
LOC: ER 00:41 → EDBD 00:41 → OVERFLOW 08:59 → EDUNIT# 08:59 → CENTRAL 17:24
PROVIDERS: ADMIT Orthopaedic Surgery; ATTEND Internal Medicine Cardiovascular Disease
PROC: 2W3LX1Z Immobilization of Right Lower Extremity using Splint (ICD-10-PCS; 2024-02-24)
PROC: 0QSD04Z Reposition Right Patella with Internal Fixation Device, Open Approach (ICD-10-PCS; principal; 2024-02-28 09:36)
DX: S82.001A Unspecified fracture of right patella, initial encounter for closed fracture (principal); I50.42 Chronic combined systolic (congestive) and diastolic (congestive) heart failure; M25.061 Hemarthrosis, right knee; E03.9 Hypothyroidism, unspecified; E83.52 Hypercalcemia; E87.6 Hypokalemia; I48.91 Unspecified atrial fibrillation; I11.0 Hypertensive heart disease with heart failure; G62.9 Polyneuropathy, unspecified; M81.0 Age-related osteoporosis without current pathological fracture; I49.5 Sick sinus syndrome; E78.00 Pure hypercholesterolemia, unspecified; M25.461 Effusion, right knee; I25.10 Atherosclerotic heart disease of native coronary artery without angina pectoris; W18.39XA Other fall on same level, initial encounter; Z95.0 Presence of cardiac pacemaker; Z95.5 Presence of coronary angioplasty implant and graft; Y93.89 Activity, other specified; Y92.89 Other specified places as the place of occurrence of the external cause; Y99.8 Other external cause status; Z79.01 Long term (current) use of anticoagulants
CPT/HCPCS: 29505; 36415; 71045; 73560; 76000; 80048; 80053; 81001; 83735; 85025; 85610; 85730; 86850; 86900; 86901; 93005; 96372; 96374; 96375; 96376; 97110; 97116; 97163; 97530; G0378; J1885; J2001; J2250; J2405; J2704; J3490

== ENCOUNTER 2024-10-16 07:07 | Day surgery (SDC) | payer MEDICARE, OTHER ==
[~2024-10-16] VITALS: Ht 160 cm; Wt 61.2 kg
[~2024-10-16 07:07] MED LIST changes: -AMLO1TAB22 PO; +ASPI81CH59 PO; -GABA-339 PO; +LACT10SO3 PO; +LINA1CAP2 PO; -POTA-220 PO; -PREG75CA90 PO
[2024-10-16] MEDS ORDERED: ceFAZolin 2 GM/D5W100ml 100 ML IV ONE (08:32)
[2024-10-16] MEDS ORDERED: PROPOFOL 10 MG/ML 20 ML IV ONE (11:00)
[2024-10-16] MEDS ORDERED: fentaNYL CITRATE 100 MCG/2 ML VL ONE (11:00)
[2024-10-16] MEDS ORDERED: ROPIVACAINE 0.5% (5MG/ML) 20ML AMPULE IJ ONE (11:13)
[2024-10-16] MEDS ORDERED: ONDANSETRON HCL 4 MG/2 ML VIAL ONE (11:17)
[2024-10-16] MEDS ORDERED: ePHEDrine SULFATE 50 MG/ML AMP ONE (11:19)
[2024-10-16] MEDS ORDERED: MEPERIDINE HCL (25 MG/ML) 1ML VIAL ONE (11:23)
[2024-10-16 11:39] VITALS: PULSE 61; RESP 12; O2SAT 100
[2024-10-16 11:40] VITALS: TEMP 97
[2024-10-16] MEDS ORDERED: HYDROmorphone HCL 2 MG/ML VL/or syr IV PRN (11:45)
[2024-10-16] MEDS ORDERED: ACETAMINOPHEN IV 1000 MG/100ML (10MG/ML) IV PRN (11:45)
[2024-10-16] MEDS ORDERED: ONDANSETRON HCL 4 MG/2 ML VIAL IV ONE (11:45)
[2024-10-16] MEDS: BUPIVACAINE 0.5% P/F INJ 10 ML VIAL ONE (11:54)
[2024-10-16 12:25] VITALS: BP 128/79; PULSE 60; RESP 15; O2SAT 98
--- NOTE | 2024-10-31 19:17 | DVHOP2 ---
Operative Report - 2 Report Details Date: 10/16/24 Preop Diagnosis: Right patella tendon partial tear/ painful keloid Postop Diagnosis: Right patella tendon partial tear/ painful keloid Surgeon: Santino Yang MD Hammer Smith: Broderick MCCORMICK Anesthesiologist: Parviz CHEN Anesthesia: Mac, Local Consent: The patient was informed of the risks and benefits of the procedure. These include but are not limited to complications of anesthesia, postoperative infection, incomplete relief of symptoms, recurrence of symptoms, damage to blood vessels, nerves and tendons, deep venous thrombosis, pulmonary embolism and possible need for repeat surgery in the future. Name of Procedure Performed 1. Right revision scar closure, excision of keloid, partial patella tendon repair Procedure Details Procedure Details: We then made a mid-line incision, which we continued to the underlying capsular tissue. We removed and excised 5x2 cm area of keloid. Patient patella tendon partial tear was then repaired using fiber wire. We released the tourniquet and achieved hemostasis where necessary. A dilute betadine solution (17.5mL in 500mL saline) was used to wash the joint and left to sit for 3 minutes. This was then irrigated out with copious amounts of pulse lavage. We sprinkled 1g vanco mycin powder below the fascia We closed our capsular incision with a PDS style suture. We irrigated further. We closed the subcutaneous tissue with Vicryl suture and re-approximated the skin with monocryl. We verified all lower extremity compartments were soft and compressible and that we had intact distal pulses. We wrapped the extremity in sterile Webril and tova bandage. The patient was transferred to the recovery room in stable condition. Condition Good Disposition Home SANTINO YANG MD Oct 31, 2024 19:17
== END 2024-10-16 12:35 | disposition home or self-care (01) ==
LOC: SUR 07:07
PROVIDERS: ATTEND Orthopaedic Surgery Adult Reconstructive Orthopaedic Surgery
DX: L91.0 Hypertrophic scar (principal); S76.111A Strain of right quadriceps muscle, fascia and tendon, initial encounter; M17.11 Unilateral primary osteoarthritis, right knee; I10 Essential (primary) hypertension; E78.5 Hyperlipidemia, unspecified; L03.125 Acute lymphangitis of right lower limb; X58.XXXA Exposure to other specified factors, initial encounter; Y93.89 Activity, other specified; Y92.89 Other specified places as the place of occurrence of the external cause; Y99.8 Other external cause status
CPT/HCPCS: 11406; 27380; 88305; J2175; J2405; J2704; J3010; J3490

== ENCOUNTER → 2025-01-01 | Outpatient (CLI) | payer MEDICARE, OTHER ==
[~2025-01-01] VITALS: Ht 160 cm; Wt 59.0 kg
== END | disposition home or self-care (01) ==
LOC: Rad HDHVI 08:59
PROVIDERS: ATTEND Internal Medicine Cardiovascular Disease
DX: R00.0 Tachycardia, unspecified (principal); I25.10 Atherosclerotic heart disease of native coronary artery without angina pectoris; I11.0 Hypertensive heart disease with heart failure; I50.33 Acute on chronic diastolic (congestive) heart failure; I48.0 Paroxysmal atrial fibrillation; I49.5 Sick sinus syndrome; I25.2 Old myocardial infarction; E78.00 Pure hypercholesterolemia, unspecified; R00.2 Palpitations; Z95.0 Presence of cardiac pacemaker
CPT/HCPCS: 78452; 93017; A9500; 96374

== ENCOUNTER 2025-01-16 10:48 | Emergency (ER) | payer MEDICARE, OTHER ==
[~2025-01-16] VITALS: Ht 160 cm; Wt 56.8 kg
[2025-01-16 11:53] VITALS: BP 134/59; PULSE 78; RESP 17; TEMP 97.7; O2SAT 97
[2025-01-16 12:30] LABS: Basophils # (auto) 0 10 ^3/uL (0-0.2); Basophils % (auto) 0.2 % (0.0-2.0); Eosinophils # (auto) 0 10 ^3/uL (0-0.8); Hematocrit 39.7 % (36.0-46.0); Hemoglobin 13.5 g/dL (12.2-16.2); Lymphocytes # (auto) 0.7 10 ^3/uL (0.4-5.4); Lymphocytes % (auto) 5.4 % (10.0-50.0); Mean Corpuscular Hemoglobin 31.6 pg (28.0-32.0); Mean Corpuscular Hgb Conc. 34.1 g/dL (32.0-36.0); Mean Corpuscular Volume 92.7 fL (80.0-100.0); Monocytes # (auto) 0.7 10 ^3/uL (0-1.3); Monocytes % (auto) 5.8 % (0.0-12.0); Neutrophils # (auto) 11.1 10 ^3/uL (1.6-8.6); Neutrophils % (auto) 88.6 % (37.0-80.0); Nucleated Red Blood Cells % 0.1 %; Platelet Count (auto) 291 10^3/uL (140-450); Red Blood Cells 4.28 10^6/uL (4.0-5.20); Red Cell Distribution Width 14.3 % (11.8-14.3); White Blood Cell 12.6 10^3/uL (4.4-10.8)
--- NOTE | 2025-01-16 12:36 | DVH ---
XY CHEST TWO VIEWS ROUTINE, HISTORY: Cough x 2 wks COMPARISON: XY CHEST TWO VIEWS ROUTINE on DOS: 04/14/23, CXR2 on DOS: 07/06/22, CHEST TWO VIEWS ROUTINE on DOS: 07/06/22 XY CHEST TWO VIEWS ROUTINE on DOS: 04/14/23, CXR2 on DOS: 07/06/22, CHEST TWO VIEWS ROUTINE on DOS: TECHNICAL DATA: 2 view of the chest was obtained. FINDINGS: Lines and tubes: A cardiac pacer is seen. Cardiomediastinal silhouette: normal Pulmonary vasculature: normal Lung expansion: normal Lung airspace: normal Lung interstitium: normal Pleura: normal Pneumothorax: no Bones: Unremarkable Other: no IMPRESSION: No acute intrathoracic abnormality.
[2025-01-16 12:44] LABS: Alanine Aminotransferase 31 U/L (7-40); Albumin 4.7 g/dL (3.2-4.8); Alkaline Phosphatase 82 U/L (46-116); Anion Gap 8 (5-15); Aspartate Aminotransferase 21 U/L (13-40); BUN/Creatinine Ratio 15.3 (10.0-20.0); Blood Urea Nitrogen 15 mg/dL (9-23); Calcium 10.2 mg/dL (8.7-10.4); Carbon Dioxide 25 mmol/L (20-31); Chloride 106 mmol/L (98-107); Potassium 3.8 mmol/L (3.5-5.1); Sodium 139 mmol/L (136-145); Total Protein 8.1 g/dL (5.7-8.2)
[2025-01-16 12:45] LABS: Bilirubin, Total 1.1 mg/dL (0.2-1.0)
[2025-01-16 12:46] LABS: Glucose 180 mg/dL (74-106)
[2025-01-16] MEDS ORDERED: GUAI600T78 PO (13:30)
[2025-01-16] MEDS ORDERED: DOXY-286 PO (13:30)
--- NOTE | 2025-01-16 13:30 | ED.PDOC ---
SOB-HPI HPI Comments This is a 79-year-old female with a history of atherosclerotic heart disease, cardiac surgery, coronary stent, chest pain, pacemaker, hypertension, hyperlipidemia, anxiety, who was brought in by her daughter for a possible pneumonia. The patient complains of a cough that is associated with fevers x3 weeks. Intermittent chills that is worse before going to bed. Patient went to urgent care and was advised she needed higher level of care to rule out sepsis and pneumonia. Denies persistent chest pain, shortness of breath, leg swelling Denies history of asthma nor any breathing conditions Denies history of pneumonia Denies recent international travel Chief Complaint: Cough Time Seen by MD: 11:33 Primary Care Provider: PATRICE Reviewed notes: Nurses Notes, Medications, Allergies Information Source: Patient Mode of Arrival: Ambulatory Past Medical History PAST MEDICAL HISTORY: High Lipids, HTN Surgical History: Pacemaker SHIRT IRONER SUPERVISOR History: No Pertinent SHIRT IRONER SUPERVISOR History Family History Family History: Unknown Social History Smoker: Non-Smoker Alcohol: Denies ETOH Use Drugs: Denies Drug Use Lives In: Home All Other Systems: Reviewed and Negative (per hpi) Physical Exam General Appearance: No Apparent Distress, Normal HEENT: Normal ENT Inspection, Pharynx Normal, TMs Normal Neck: Full Range of Motion, Non-Tender, Normal, Normal Inspection Respiratory: Chest Non-Tender, Lungs Clear, No Accessory Muscle Use, No Respiratory Distress, Normal Breath Sounds Cardiovascular: No Edema, No JVD, No Murmur, No Gallop, Normal Peripheral Pulses, Regular Rate/Rhythm Breast Exam: Deferred Gastrointestinal: No Organomegaly, Non Tender, No Pulsatile Mass, Normal Bowel Sounds, Soft Genitalia: Deferred Pelvic: Deferred Rectal: Deferred Extremities: No calf tenderness, Normal capillary refill, Normal inspection, Normal range of motion, Non-tender, No pedal edema Musculoskeletal : Apperance: Normal Neurologic: Alert, eyeglass lens grinder II-XII nml as Tested, No Motor Deficits, Normal Affect, Normal Mood, No Sensory Deficits Cerebellar Function: Normal Reflexes: Normal Skin: Dry, Normal Color, Warm Lymphatic: No Adenopathy Was a procedure done? Was a procedure done?: No Differential Dx Differential Diagnosis: Bronchitis, Pneumonia, URI X-Ray, Labs, Meds, VS Vital Signs Date Time Temp Pulse Resp B/P (MAP) Pulse Ox O2 Delivery O2 Flow Rate FiO2 01/16/25 11:53 97.7 78 17 134/59 (84) 96 97.7 01/16/25 11:53 78 17 97 Room Air 01/16/25 11:12 98.3 97 18 138/86 (103) 96 98.3 01/16/25 11:12 18 96 Room Air* 0 21 Lab Test 01/16/25 12:15 Range/Units White Blood Count 12.6 H 4.4-10.8 10^3/uL Red Blood Count 4.28 4.0-5.20 10^6/uL Hemoglobin 13.5 12.2-16.2 g/dL Hematocrit 39.7 36.0-46.0 % Mean Corpuscular Volume 92.7 80.0-100.0 fL Mean Corpuscular Hemoglobin 31.6 28.0-32.0 pg Mean Corpuscular Hemoglobin Concent 34.1 32.0-36.0 g/dL Red Cell Distribution Width 14.3 11.8-14.3 % Platelet Count 291 140-450 10^3/uL Mean Platelet Volume 7.1 6.9-10.8 fL Neutrophils (%) (Auto) 88.6 H 37.0-80.0 % Lymphocytes (%) (Auto) 5.4 L 10.0-50.0 % Monocytes (%) (Auto) 5.8 0.0-12.0 % Eosinophils (%) (Auto) 0.0 0.0-7.0 % Basophils (%) (Auto) 0.2 0.0-2.0 % Neutrophils # (Auto) 11.1 H 1.6-8.6 10 ^3/uL Lymphocytes # (Auto) 0.7 0.4-5.4 10 ^3/uL Monocytes # (Auto) 0.7 0-1.3 10 ^3/uL Eosinophils # (Auto) 0 0-0.8 10 ^3/uL Basophils # (Auto) 0 0-0.2 10 ^3/uL Nucleated Red Blood Cells 0.1 % Sodium Level 139 136-145 mmol/L Potassium Level 3.8 3.5-5.1 mmol/L Chloride Level 106 98-107 mmol/L Carbon Dioxide Level 25 20-31 mmol/L Anion Gap 8 5-15 Blood Urea Nitrogen 15 9-23 mg/dL Creatinine 0.98 0.550-1.02 mg/dL Glomerular Filtration Rate Calc 59 >90 mL/min BUN/Creatinine Ratio 15.3 10.0-20.0 Serum Glucose 180 H 74-106 mg/dL Calcium Level 10.2 8.7-10.4 mg/dL Total Bilirubin 1.1 H 0.2-1.0 mg/dL Aspartate Amino Transferase (AST) 21 13-40 U/L Alanine Aminotransferase (ALT) 31 7-40 U/L Alkaline Phosphatase 82 46-116 U/L Lactate Dehydrogenase 205 120-246 U/L Troponin I High Sensitivity 7 </=34 ng/L B-Type Natriuretic Peptide 193.56 0-100 pg/mL Total Protein 8.1 5.7-8.2 g/dL Albumin 4.7 3.2-4.8 g/dL X-Ray, Labs, Meds, VS Comment The patient is overall well-appearing nontoxic on exam. On physical exam, respirations even and unlabored, clear to auscultation bilaterally. Oxygen stable on room air. Did not have any focal lung findings and therefore chest x-ray was not indicated during this exam Low suspicion of strep pharyngitis given physical exam findings and patient's presenting symptoms No signs of meningismus on exam Overall, the patient is well hydrated and nontoxic. Plan for symptomatic control for fever and pain as needed. The patient was able to tolerate p.o. intake in the ED. at this time, patient is safe for discharge home. The exam findings and plan discussed. We will discharge home with PCP follow up and strict return precautions. Discussed that cough can linger up to 6 weeks after viral URI Supportive care and return precautions discussed Recommended vitamin C, rest, handwashing, and symptomatic care. Expect 2-week course with possibly of cough lingering up to 6 weeks. Nonpharmacological remedies for fluids has been recommended as well Additional MDM Review of External, Non-ED records: External records reviewed. Discussion with independent historian (EMS, family) history obtained from the patient at bedside Chronic conditions affecting care: chx mx Social determinants of health affecting care: hx of smoker Consideration of admission (observation or admission): I considered escalation of care to admission for this patient, however given the reassuring workup, the patient is safe for outpatient management. Time of 1ST Reevaluation: 13:27 Reevaluation 1ST: Improved Patient Education/Counseling: Diagnosis, Treatment Family Education/Counseling: Diagnosis, Treatment Departure 1 Departure Time of Disposition: 13:28 Impression: Primary Impression: Bronchitis Disposition: 01 HOME / SELF CARE / HOMELESS Condition: Fair e-Prescriptions Guaifenesin (Mucinex) 600 Mg Tab 1 TAB PO BID for 7 Days, #14 TAB 0 Refills Prov: GUERA [place] BOOKSTORE MANAGER 01/16/25 Doxycycline Hyclate (DOXYCYCLINE HYCLATE) 100 Mg Tab 1 TAB PO BID for 7 Days, #14 TAB 0 Refills Prov: GUERA NJ BOOKSTORE MANAGER 01/16/25 Discharged With: Relative Critical Care Note Critical Care Time?: No Stability Stability form required: No Heart Score Heart Score: Heart Score Response (Comments) Value History N/A 0 EKG N/A 0 Age N/A 0 Risk Factors N/A 0 Troponin N/A 0 Total 0 GUERA [place] NP January 16, 2025 13:30
== END 2025-01-16 13:35 | disposition home or self-care (01) ==
LOC: ER 10:48
DX: J40 Bronchitis, not specified as acute or chronic (principal); I10 Essential (primary) hypertension; E78.5 Hyperlipidemia, unspecified; R06.02 Shortness of breath; Z95.0 Presence of cardiac pacemaker
CPT/HCPCS: 36415; 71046; 80053; 83615; 83880; 84484; 85025